=== PATIENT | female | born 1950 | race Caucasian/White ===

== ENCOUNTER 2019-03-06 11:27 | Inpatient (IN) ==
--- NOTE | 2019-02-19 10:14 | PAT Medication Instructions ---
Medication Instructions Date of Service February 19, 2019 Home Medications aspirin [Aspir-81] 81 mg PO DAILY atorvastatin 20 mg PO DAILY azelastine 2 spray INTRANASAL DAILY calcium carbonate-vitamin D3 1 cap PO DAILY clonazepam 0.5 mg PO HS diphenhydramine HCl [Benadryl] 25 mg PO UD PRN duloxetine [Cymbalta] 60 mg PO QAM epinephrine [EpiPen] 0.3 mg IM Q3H PRN famotidine [Pepcid] 20 mg PO UD PRN furosemide 40 mg PO QAM ipratropium-albuterol [Combivent 1 puff INHALATION UD PRN losartan 25 mg PO QAM melatonin 5 mg PO HS PRN mepolizumab [Nucala] 1 dose SUBCUT UD PRN mometasone-formoterol [Dulera] 2 puff INHALATION BID montelukast 10 mg PO QPM tiotropium bromide [Spiriva 2 puff INHALATION DAILY Continue as directed epinephrine [EpiPen] 0.3 mg IM Q3H PRN (if needed) ASK your prescriber and surgeon mepolizumab [Nucala] 1 dose SUBCUT UD PRN DO NOT take the morning of surgery calcium carbonate-vitamin D3 1 cap PO DAILY diphenhydramine HCl [Benadryl] 25 mg PO UD PRN famotidine [Pepcid] 20 mg PO UD PRN furosemide 40 mg PO QAM losartan 25 mg PO QAM montelukast 10 mg PO QPM Take morning of surgery With a small sip of water, OTHERWISE NOTHING TO EAT OR DRINK AFTER MIDNIGHT: aspirin [Aspir-81] 81 mg PO DAILY atorvastatin 20 mg PO DAILY azelastine 2 spray INTRANASAL DAILY duloxetine [Cymbalta] 60 mg PO QAM ipratropium-albuterol [Combivent 1 puff INHALATION UD PRN (if needed) mometasone-formoterol [Dulera] 2 puff INHALATION BID tiotropium bromide [Spiriva 2 puff INHALATION DAILY Take evening before surgery clonazepam 0.5 mg PO HS diphenhydramine HCl [Benadryl] 25 mg PO UD PRN (if needed) famotidine [Pepcid] 20 mg PO UD PRN (if needed) ipratropium-albuterol [Combivent 1 puff INHALATION UD PRN (if needed) melatonin 5 mg PO HS PRN (if needed) mometasone-formoterol [Dulera] 2 puff INHALATION BID montelukast 10 mg PO QPM Other Notes If you have any questions please call us at [phone] or [phone] or [phone] or [phone]
--- NOTE | 2019-02-19 10:22 | Anesthesiology Consultation ---
Date of Service February 19, 2019 Assessment & Plan (1) Encounter for pre-operative examination: Chart Review Chart Review: Acceptable Risk for Surgery and Patient seen in Pre Admission Testing Consults Requested medical & cardiac (HEIKE (02/11/19) & Dr. Sharad Arciniega (02/18/19)) Note received from patients cardiology pre-op appointment on 02/11. Per note, "The patient is stable and at optimal cardiac status presently to proceed with the planned surgery accepting all cardiac risk." Patient was seen by PCPs office on 02/18/19 for preoperative evaluation. Note received stating "Patient medically optimized presently. No SOB, chest pain. Cla ss I risk." "Medically cleared for surgery." Teaching & Discussion Pre-Anesthesia Teaching/Discussion Notes: Instructed NPO after midnight before surgery, except medications with 15 cc of water. Medication instructions provided according to the PAT guidelines. History Surgery Operation Date: 03/06/19 09:10 Proposed Procedures p Left Total Knee Arthroplasty - Elias Harris DO Height/Weight Height: 5 ft 5 in Weight: 132.9 kg Allergies Allergy/AdvReac Type Severity Reaction Status Date / Time grass pollen Allergy Unknown SEVERE Verified 02/12/19 08:46 CONGESTION rosuvastatin [From Crestor] Allergy Unknown RASH WITH Verified 02/12/19 08:07 BLISTERS DUST MITES Allergy Unknown SEVERE Uncoded 02/12/19 08:46 CONGESTION Medications Home Medications Medication Instructions Recorded Confirmed Last Taken azelastine 2 spray INTRANASAL DAILY 02/12/19 02/12/19 Unknown calcium carbonate-vitamin D3 1 cap PO DAILY 02/12/19 02/12/19 Unknown [Calcium 600 + D(3)] clonazepam 0.5 mg PO HS 02/12/19 02/12/19 Unknown diphenhydramine HCl [Benadryl] 25 mg PO UD PRN 02/12/19 02/12/19 Unknown duloxetine [Cymbalta] 60 mg PO QAM 02/12/19 02/12/19 02/12/19 epinephrine [EpiPen] 0.3 mg IM Q3H PRN 02/12/19 02/12/19 Unknown famotidine [Pepcid] 20 mg PO UD PRN 02/12/19 02/12/19 Unknown furosemide 40 mg PO QAM 02/12/19 02/12/19 02/12/19 ipratropium-albuterol [Combivent 1 puff INHALATION UD PRN 02/12/19 02/12/19 Unknown Respimat] losartan 25 mg PO QAM 02/12/19 02/12/19 02/12/19 melatonin 5 mg PO HS PRN 02/12/19 02/12/19 Unknown mepolizumab [Nucala] 1 dose SUBCUT UD PRN 02/12/19 02/12/19 02/07/19 mometasone-formoterol [Dulera] 2 puff INHALATION BID 02/12/19 02/12/19 Unknown montelukast 10 mg PO QPM 02/12/19 02/12/19 Unknown tiotropium bromide [Spiriva 2 puff INHALATION DAILY 02/12/19 02/12/19 Unknown Respimat] Past Medical History Medical History Acid reflux Anxiety and depression Asthma Degenerative disc disease Hearing deficit LEFT EAR History of high blood pressure History of right breast cancer Morbid obesity Osteoarthritis Sleep apnea NO CPAP CURRENTLY DUE TO THE SIZING ISSUE Past Family History Family History Other Family history of heart disease Past Surgical History Surgical History History of arthroscopy of left knee History of bilateral cataract extraction History of breast biopsy RIGHT/MARKER History of colonoscopy History of ear surgery TM RECONSTRUCTION History of hysterectomy History of partial thyroidectomy History of urologic surgery BLADDER TACK Hx of appendectomy Past Anesthesia History No Hx of Anesthesia Complications and No Family Hx of Anesthesia Complications History of PONV No Motion Sickness Screening History of Motion Sickness: No Social History Smoking Status: Former smoker tobacco type: cigarettes Do You Dip or Chew Tobacco: No Smoking End Date: QUIT ~10-15 YRS AGO Hx Alcohol Use: No Alcohol Intake Frequency Comment: 1 BEER A YR Hx Substance Use: No substance use type: does not use Exercise / Class Metabolic Activity II 4-5 Yardwork/Stairs/Walk up hill (Exercise at the center each AM, cholo sework/laundry, Helping care for son who is getting clean from drugs, Can slowly climb FOS but its difficult due to knee pain. Denies CP. Does have HART/SOB from asthma. ) Review of Systems Patient denies chest pain, cough, palpitations. +SOB/HART (Asthma, allergies) +Joint Pain (knees, back, hand) +Acid Reflux (mostly controlled with medications) +wheezing (occasionally due to asthma) Physical Exam Vital Signs BP: 100/68 P: 68 R: 18 T: 98.4 SPO2: 96% on RA Constitutional + morbidly obese ENMT Mouth: + dentures (full set of upper dentures) Thyromental Distance: > or= 3.5 Finger Breadths (3.5) Mallampati Class: I Neck normal visual inspection and + thick neck; neck extension not limited Respiratory normal respiratory effort Auscultation: lungs clear to auscultation bilaterally Cardiovascular Rate/Rhythm: regular rate and regular rhythm Heart Sounds: no murmur Vessels: no carotid bruit Neurologic moves all extremities Psychiatric Orientation: alert and oriented x 3 Testing Electrocardiogram Date: 02/11/19 Findings: + NSR @ (71) Low voltage - possible pulmonary disease Other Testing CT Angiography Chest w/ contrast 07/16/18 IMPRESSION: Old granulomatous disease. No findings to suggest malignancy. The noncalcified 2 cm nodule in the right middle lobe is unchanged from 2009 chest x-ray. Minor bilateral basilar areas of geographic ground glass densities suggesting minor atelectasis or minimal hypersensitivity alveolitis. Laboratory Results 02/19/19 10:43 02/19/19 10:43 Blood Type A Positive 02/19/19 10:43 Antibody Screen NEGATIVE 02/19/19 10:43 PT 10.3 Seconds (9.0-12.0) 02/19/19 10:43 INR 1.0 (0.9-1.1) 02/19/19 10:43 APTT 23.6 Seconds (21.0-31.0) 02/19/19 10:43 Hemoglobin A1c 5.8 % (4.5-5.6) H 02/19/19 10:43 Urine Color Yellow 02/19/19 Unknown Urine Appearance Clear (Clear) 02/19/19 Unknown Urine pH 5.0 (4.5-7.5) 02/19/19 Unknown Ur Specific [place] 1.013 (1.000-1.030) 02/19/19 Unknown Urine Protein Negative (Negative) 02/19/19 Unknown Urine Glucose (UA) Negative (Negative) 02/19/19 Unknown Urine Ketones Negative (Negative) 02/19/19 Unknown Urine Nitrite Negative (Negative) 02/19/19 Unknown Ur Leukocyte Esterase Negative (Negative) 02/19/19 Unknown 02/19/19 Unknown Urine Culture - Final Urine,Clean Catch Three types or organisms present, all moderate counts probable skin ashley. No further identifications or sensitivities to follow.
[2019-02-19 12:07] LABS: Basophils # (auto) 0.01 K/uL (0-0.2); Basophils % (auto) 0.2 %; Eosinophils # (auto) 0.03 K/uL (0-0.5); Eosinophils % (auto) 0.5 %; Hematocrit (blood only) 39.8 % (37-47); Immature Granulocytes # (auto) 0.02 K/uL (0.00-0.02); Immature Granulocytes % (auto) 0.3 %; Lymphocytes # (auto) 1.63 K/uL (1.2-3.4); Lymphocytes % (auto) 28.5 %; Mean Corpuscular Hgb Conc 32.7 g/dL (32-36); Mean Corpuscular Volume 91.1 fL (80-100); Mean Platelet Volume 9.7 fL (7.4-10.4); Monocytes # (auto) 0.55 K/uL (0.11-0.59); Monocytes % (auto) 9.6 %; Neutrophils # (auto) 3.48 K/uL (1.4-6.5); Neutrophils % (auto) 60.9 %; Platelet Count 274 K/uL (130-400); RDW Coefficient of Variation 13.7 % (11.5-14.5); RDW Standard Deviation 46.2 fL (36.4-46.3); Red Blood Count 4.37 M/uL (4.2-5.4); White Blood Count 5.72 K/uL (4.8-10.8)
[2019-02-19 12:10] LABS: Appearance Urine Clear (Clear); Bilirubin Urine Negative (Negative); Blood Urine Negative (Negative); Color Urine Yellow; Glucose Urine UA Negative (Negative); Ketones Urine Negative (Negative); Leukocyte Esterase Urine Negative (Negative); Nitrite Urine Negative (Negative); Protein Urine Negative (Negative); Specific Gravity Urine 1.013 (1.000-1.030); Urobilinogen Urine Negative (Negative)
[2019-02-19 12:17] LABS: Albumin Level 3.6 gm/dl (3.4-5.0); Calcium 9.4 mg/dl (8.5-10.1); Creatinine Clr Calc Pharmacy 87.5 ml/min; Est GFR (Non-African American) 69.9; Potassium 3.8 mmol/L (3.5-5.1)
[2019-02-19 12:26] LABS: Partial Thromboplastin Ratio 0.9; Partial Thromboplastin Time 23.6 Seconds (21.0-31.0); Prothrombin Time 10.3 Seconds (9.0-12.0)
[2019-02-19 12:27] LABS: Estimated Average Glucose 120 mg/dl; Hemoglobin A1C 5.8 % (4.5-5.6)
--- NOTE | 2019-03-04 08:34 | History & Physical Report ---
Date of Service March 04, 2019 Date of Surgery: 03-06-19 Assessment & Plan (1) Osteoarthritis of left knee: Further care discussed with patient and at this point in time has failed conservative measures and would like to proceed with a Left total knee replacement. Plan on discharge will be home with home health physical therapy. DVT prophalaxis with TEDs, SCDs and will also place on aspirin 81 mg p.o. b.i.d. for a month postop. Patient will have follow up appointment in our office two weeks post op for staple/suture removal and re-evaluation. Patient otherwise has no other questions or concerns. patient has failed conservative measures including previous visco, cortisone injections as well as po nsaids. History of Present Illness Chief Complaint: left knee pain Primary Care Provider: Sharad Geiger DO Ms Hogue is a 68 year old female who complains of left knee pain, presents for pre-op evaluation prior to a left total knee replacement scheduled for 03-06-19. she complains of pain, decreased range of motion and instability. She states that the symptoms have been chronic non-traumatic. The symptoms occur constantly with intermittent worsening. Currently the patient states that the symptoms are moderate-severe. The pain is described as aching. She rates her current pain as 9/10. The symptoms are aggravated by ascending stairs, daily activities, descending stairs, first steps while awake, walking and weight bearing. Priti states that the symptoms are relieved by no specific activities. She has been treated with multiple corticosteroid injections as well as viscosupplementation in the past with no relief. Allergies Allergy/AdvReac Type Severity Reaction Status Date / Time grass pollen Allergy Unknown SEVERE Verified 02/12/19 08:46 CONGESTION rosuvastatin [From Crestor] Allergy Unknown RASH WITH Verified 02/12/19 08:07 BLISTERS DUST MITES Allergy Unknown SEVERE Uncoded 02/12/19 08:46 CONGESTION Home Medications Home Medications Medication Instructions Recorded Confirmed Type azelastine 2 spray INTRANASAL DAILY 02/12/19 02/12/19 History calcium carbonate-vitamin D3 1 cap PO DAILY 02/12/19 02/12/19 History [Calcium 600 + D(3)] clonazepam 0.5 mg PO HS 02/12/19 02/12/19 History diphenhydramine HCl [Benadryl] 25 mg PO UD PRN 02/12/19 02/12/19 History duloxetine [Cymbalta] 60 mg PO QAM 02/12/19 02/12/19 History epinephrine [EpiPen] 0.3 mg IM Q3H PRN 02/12/19 02/12/19 History famotidine [Pepcid] 20 mg PO UD PRN 02/12/19 02/12/19 History furosemide 40 mg PO QAM 02/12/19 02/12/19 History ipratropium-albuterol [Combivent 1 puff INHALATION UD PRN 02/12/19 02/12/19 History Respimat] losartan 25 mg PO QAM 02/12/19 02/12/19 History melatonin 5 mg PO HS PRN 02/12/19 02/12/19 History mepolizumab [Nucala] 1 dose SUBCUT UD PRN 02/12/19 02/12/19 History mometasone-formoterol [Dulera] 2 puff INHALATION BID 02/12/19 02/12/19 History montelukast 10 mg PO QPM 02/12/19 02/12/19 History tiotropium bromide [Spiriva 2 puff INHALATION DAILY 02/12/19 02/12/19 History Respimat] Past Med/Surg History Medical History Acid reflux Anxiety and depression Asthma Degenerative disc disease Hearing deficit LEFT EAR History of high blood pressure History of right breast cancer Morbid obesity Osteoarthritis Sleep apnea NO CPAP CURRENTLY DUE TO THE SIZING ISSUE Surgical History History of arthroscopy of left knee History of bilateral cataract extraction History of breast biopsy RIGHT/MARKER History of colonoscopy History of ear surgery TM RECONSTRUCTION History of hysterectomy History of partial thyroidectomy History of urologic surgery BLADDER TACK Hx of appendectomy Family History Other Family history of heart disease Social History Preferred Language: Armenian Communication Ability: Effective Assistant Spa Director Required: No Beliefs That Will Affect Care: None Current Living Situation: Alone Other Information That Helps Us Care for You: No Feels Safe at Home: Yes Smoking Status: Former smoker Tobacco Type: cigarettes Do You Dip or Chew Tobacco: No Smoking End Date: QUIT ~10-15 YRS AGO Hx Alcohol Use: No Hx Substance Use: No Review of Systems 2 Review of Systems: All systems reviewed & are unremarkable except as noted in HPI & below Constitutional: no fever, no chills and no sweats Respiratory: no cough and no dyspnea Cardiovascular: no chest pain, no dyspnea and no orthopnea Gastrointestinal: no abdominal pain, no nausea and no vomiting Musculoskeletal: as per Subjective / HPI Integumentary: no rash and no lesions Physical Exam Physical Exam: Ht: 5ft 5in Wt: 1232.9kg BP: 132/82 Pulse: 82 Constitutional: WD/WN, vitals as above no acute distress Respiratory: normal respiratory effort, lungs clear to auscultation no respiratory distress, no labored breathing and does not use accessory muscles Cardiovascular: RRR, no murmur, no edema Gastrointestinal (Abdomen): normal bowel sounds, soft, nontender, no hepatosplenomegaly Musculoskeletal: Left Knee Physical Exam- She ambulates with a limp, overall varus alignment. There is no erythema or warmth, no ecchymosis, no atrophy. mild suprapatellar effusion, maximum tenderness over her medial joint line. mild crepitation with motion, jose's Negative, posterior drawer negative. positive mcmurrays medially, negative anterior drawer, knee stable with valgus/varus stress. no extensor lag. demonstrates good quad tone. pain with active range of motion, AROM 0/5/110, Passive ROM 0/3/115. No pain with active/passive ROM of ankle. Lower Extremity Strength normal. Lower Extremity Neuro-vascular is normal Results & Data Laboratory Results Left Knee X-ray from 03-19-18 confirm degenerative changes to the left knee, greatest medial compartments and patellofemoral joint overall varus alignment. xrays showing joint space narrowing particularly the medial compartment, osteophyte formation and subchondral sclerosis. no acute bony pathology noted. no loose bodies.
[~2019-03-06 11:27] MED LIST: ACETAMINOPHEN 500 MG TAB PO SCH; BUPIVACAINE 0.5 % 5 MG/1 ML PF 10ML VIAL ONE; CEFAZOLIN 3000MG 65 ML IV SCH; CeleBREX 200 MG CAP PO SCH; FAMOTIDINE 20 MG TAB PO SCH; GABAPENTIN 300 MG PO SCH; LR 500ML BOLUS, THEN 15ML/HR IV SCH; ROPIVACAINE 0.5% 5 MG/ML 30 ML VIAL ONE; ROPIVACAINE 0.5% HCL/PF 150 MG, BUPIVACAINE 0.5% MPF 30 ML, EPINEPHrine 30MG/30ML (OR U... INFIL SCH; TRANEXAMIC ACID 1,000 MG **IV Intra-op IV SCH; TRANEXAMIC ACID 1,000 MG **IV Pre-op IV SCH; dexAMETHasone 4 MG TAB PO SCH
--- NOTE | 2019-03-06 12:36 | History & Physical Bridge Note ---
Date of Service March 06, 2019 History & Physical Bridge Note I have examined the patient, reviewed the History & Physical and in the interval since the performance of the History & Physical I have noted the following changes of clinical significance: no changes noted
[2019-03-06] MEDS ORDERED: fentaNYL citrate 100 MCG/2 ML VIAL ONE (13:10)
[2019-03-06] MEDS ORDERED: MIDAZOLAM HCL 1 MG/ML 2ML VIAL ONE ×2 (13:10→15:13)
[2019-03-06] MEDS ORDERED: POVIDONE-IODINE OP SOLN 30 ML BTL ONE (14:21)
[2019-03-06] MEDS ORDERED: ORTHO JOINT ANESTHETIC ONE (14:21)
[2019-03-06] MEDS ORDERED: BACITRACIN INJ 50,000 UNIT VIAL ONE (14:22)
[2019-03-06] MEDS ORDERED: ATROPINE SULFATE 0.1 MG/ML 10ML SYR IV PRN (14:31)
[2019-03-06] MEDS ORDERED: ePHEDrine sulfate 50 MG/ML AMP IV PRN (14:31)
[2019-03-06] MEDS ORDERED: HYDROmorphone INJ 1 MG/ML SYRINGE IV PRN ×2 (14:31→17:50)
[2019-03-06] MEDS ORDERED: ONDANSETRON INJ 2 MG/ML 2 ML VIAL IV PRN ×2 (14:31→17:50)
[2019-03-06] MEDS ORDERED: PHENYLEPHRINE 100MCG/ML 5ML SYR IV PRN (14:31)
[2019-03-06] MEDS ORDERED: KETOROLAC TROMETHAMINE 15 MG/ML VIAL IV PRN (14:31)
[2019-03-06] MEDS ORDERED: PROPOFOL IV EMULSION 10 MG/ML 20 ML VIAL IV ONE (15:09)
[2019-03-06] MEDS ORDERED: ePHEDrine sulfate 50 MG/ML SYR ONE (15:11)
[2019-03-06] MEDS ORDERED: PHENYLEPHRINE HCL 10 MG/ML VIAL ONE (15:36)
--- NOTE | 2019-03-06 16:03 | Operative Report ---
Post Operative Report Pre & Post Diagnosis Operation Date: 03/06/19 14:30 Pre-Op Diagnosis: Left Knee Osteoarthritis Post-Op Diagnosis: Left Knee Osteoarthritis Procedure Operation Date: 03/06/19 14:30 Actual Procedures p Left Total Knee Arthroplasty(Left utilizing [employer] journey to non- block total knee arthroplasty size 5 femur size 4 tibia size 9 polyethylene size 29 oval patella) - Elias Harris DO Surgeon Elias Harris DO [employer] Manager [employer] [facility] Estimated Blood Loss 5 Findings Consistent with Post-Op Diagnosis Patient presents with severe end-stage tricompartmental degenerative joint disease of left knee no response to conservative management patient with no evidence of subchondral sclerosis marginal osteophytes cystic changes large effusion with a eburnated [id number] changes no response to conservative Specimens Bone and cartilage Drains Medium bore Hemovac Complications none Disposition Accompanied Patient To Recovery: No Disposition: Recovery Room Indications Patient presents with severe end-stage tricompartmental degenerative joint disease no response to conservative therapy and treatment including physical therapy anti-inflammatories relative rest activity modification corticosteroid injections Visco supplementations patient presents with the above intraoperative findings Description of Procedure After proper prepping and draping of the left lower extremity anterior midline incision was made over the region of the extensor extensor mechanism after meticulous hemostasis was obtained and maintained in subcutaneous tissues a medial parapatellar incision was made The patella was subluxed lateralward the medial lateral gutter were cleaned from any hypertrophic synovitis and scar t issue of the distal femoral block was placed and the distal femoral osteotomy cut was made subsequently the chamfers anterior and posterior osteotomy cuts were made utilizing the 4-in-1 block the tibia was subsequently subluxed anteriorward medial and ateral meniscal remnants were excised in their entirety remnants of the anterior and posterior cruciate ligaments were excised in their entirety excellent exposure of the proximal tibia was obtained the tibial osteotomy guide was placed on the proximal tibial osteotomy cut was made once again the knee was irrigated with copious amounts of sterile saline solution the patella was subsequently everted lateralward thickened scar tissue around the patella was removed the patella was subsequently cut utilizing a freehand technique and was drilled prepared for final preparation and placement of patella socially flexion-extension gaps were checked and the equal and symmetric trials were placed to the appropriate femoral and tibial trials with poly-spacer being placed for equal flexion and extension gaps and full range of motion including extension to 0 and flexion to 140 the trial components after having been taken to recovery range of motion was subsequently removed meticulous hemostasis was obtained and maintained subsequently a knee block injection of joint cocktail including ropivacaine 0.5% 150 mg. Bupivacaine 0.5% epinephrine 1-200,030 mL's toradol 30 mg dexamethasone 4 mg ketamine 10 mg clonidine 100 micrograms normal saline solution 30 mg was infiltrated into the soft tissues of the posterior knee medial lateral gutters and periosteal synovium special attention was paid to protect neurovascular structures at all times subsequently trial components having been removed the knee was irrigated with sterile saline solution. debris was removed the proximal tibia was subsequently prepared and was made ready for the placement of the tibial component tibial component was also cemented and tamped into position the femoral component was subsequently placed and cemented in the position the patellar component was subsequently cemented in position because hemostasis once again obtained and maintained wound having been thoroughly irrigated with debridement and debridement lavage was performed as well as a medial parapatellar incision closed with #1 Vicryl in interrupted fashion subcutaneous was closed with #2 Vicryl skin was closed with skin clips. PA-C was necessary for prepping and drapping as well as wound closure of deep fascia Sub cutaneous tissue and skin and was necessary for the case. A sterile compressive dressing was placed patient was taken to recovery in stable condition of report dictated by Steven I attest to the content of the Intraoperative Record and any orders documented therein. Any exceptions are noted below. I attest to the content of the Intraoperative Record and any orders documented therein. Any exceptions are noted below.
--- NOTE | 2019-03-06 17:14 | XRay Report ---
XR knee LT 2V routine HISTORY: 68 years-old Female Surgical Post Op left knee total joint arthroplasty. COMPARISON: Left knee radiographs 11/23/2013 TECHNIQUE: 2 views of the left knee FINDINGS: Left knee total joint arthroplasty and patella resurfacing demonstrates satisfactory alignment withou t acute fracture or retained foreign body. Anterior midline skin nick are noted along with expecte d postsurgical soft tissue swelling and deep tissue air with surgical drainage catheter. IMPRESSION: Left knee total joint arthroplasty and patella resurfacing with satisfactory alignment. The above report was generated using voice recognition software. It may contain grammatical, syntax o r spelling errors. Electronically signed by: Raúl Leonard M.D. 03/06/2019 5:12 PM
--- NOTE | 2019-03-06 17:23 | Anesthesiology Progress Note ---
Date of Service March 06, 2019 Anesthesia Post Procedure Vital Signs Vital Signs: Temp Pulse Pulse Resp BP Pulse Ox 03/06/19 17:20 36.4 C L 67 16 101/52 L 96 03/06/19 17:10 81 16 108/55 L 93 03/06/19 17:00 77 16 102/67 92 03/06/19 16:50 36.3 C L 82 16 87/43 L 96 03/06/19 12:29 36.7 C 86 20 150/84 H 96 Pain Intensity Left Knee: Pain Intensity: 4 Transfer of Care Handoff Completed per policy Notes Mental Status: alert / awake / arousable and participated in evaluation Patient Amnestic to Procedure: Yes Nausea / Vomiting: adequately controlled Pain: adequately controlled Airway Patency, RR, SpO2: stable & adequate BP & HR: stable & adequate Hydration State: stable & adequate Anesthetic Complications: no major complications apparent
[2019-03-06] MEDS ORDERED: BISACODYL 10 MG SUPP PR PRN (17:50)
[2019-03-06] MEDS ORDERED: ALUMINUM/MAGNESIUM SUSP 30 ML UDC PO PRN (17:50)
[2019-03-06] MEDS ORDERED: METOCLOPRAMIDE HCL INJ 5 MG/ML 2 ML VIAL IV PRN (17:50)
[2019-03-06] MEDS ORDERED: MAGNESIUM HYDROXIDE SUSP 30 ML UDC PO PRN (17:50)
[2019-03-06] MEDS ORDERED: NALOXONE HCL 0.4 MG/1 ML VIAL/CARP IV PRN (17:50)
[2019-03-06] MEDS ORDERED: IPRATROPIUM BROMIDE/ALBUTEROL respimat INH INH PRN (17:50)
[2019-03-06] MEDS ORDERED: EPINEPHRINE ADULT AUTO-INJECT 0.3 MG SYR IM PRN (17:50)
[2019-03-06] MEDS ORDERED: SODIUM CHLORIDE 0.9% 1000ML 1,000 ML IV SCH (19:30)
[2019-03-06] MEDS: ACETAMINOPHEN 500 MG TAB PO SCH (21:09)
[2019-03-06] MEDS: MONTELUKAST SODIUM 10 MG TABLET PO SCH (21:10)
[2019-03-06] MEDS: DOCUSATE SODIUM 100 MG CAP PO SCH (21:10)
[2019-03-06] MEDS: KETOROLAC TROMETHAMINE 15 MG/ML VIAL IV SCH (21:11)
[2019-03-06] MEDS: SENNA 8.6 MG TAB PO SCH (21:12)
[2019-03-06] MEDS: ASPIRIN 81 MG ECTAB PO SCH (21:12)
[2019-03-06] MEDS: CEFAZOLIN 2000MG 2,000 MG/15 ML SYR IV SCH (21:13)
[2019-03-06] MEDS: clonazePAM 0.5 MG TAB PO SCH (21:19)
[2019-03-07] MEDS: OXYCODONE HCL IR 5 MG TAB (IMMEDIATE RELEASE) PO PRN ×4 (00:22→21:20)
[2019-03-07] MEDS: KETOROLAC TROMETHAMINE 15 MG/ML VIAL IV SCH ×3 (01:50→13:07)
[2019-03-07] MEDS: ACETAMINOPHEN 500 MG TAB PO SCH ×3 (04:56→21:21)
[2019-03-07] MEDS: CEFAZOLIN 2000MG 2,000 MG/15 ML SYR IV SCH (04:56)
--- NOTE | 2019-03-07 07:23 | Orthopedic Progress Note ---
Date of Service March 07, 2019 Assessment & Plan (1) Status post total left knee replacement: POD #1 s/p Left TKA pt/ot dvt proph with TONYA/SCD/ASA D/C plans uncertain at this time, likely would recommend rehab but will see how she performs in PT. labs pending Subjective POD #1 s/p Left TKA denies CP/SOB denies F/chills pain well controlled, currently 12/16 Review of Systems Constitutional: no fever, no chills and no sweats Physical Exam Physical Exam: Vital Signs Temp Pulse Pulse Pulse Resp BP Pulse Ox 03/07/19 02:54 36.8 C 90 16 97/53 L 97 03/06/19 23:23 36.6 C 85 16 92/55 L 96 03/06/19 20:52 37.0 C 97 H 17 108/67 95 03/06/19 19:45 90 18 106/63 96 03/06/19 18:41 93 H 17 102/69 93 03/06/19 18:15 90 18 128/74 94 03/06/19 17:45 37.2 C 84 16 97/58 L 95 03/06/19 17:20 36.4 C L 67 16 101/52 L 96 03/06/19 17:10 81 16 108/55 L 93 03/06/19 17:00 77 16 102/67 92 03/06/19 16:50 36.3 C L 82 16 87/43 L 96 03/06/19 12:29 36.7 C 86 20 150/84 H 96 Intake and Output 03/06/19 03/07/19 03/07/19 22:59 06:59 14:59 Intake Total 1850 / 4370.000 1118.333 / 4370.00 0 Output Total 505 / 1015 510 / 1015 Balance 1345 / 3355.000 608.333 / 3355.000 Intake: IV 175 / 2445.000 868.333 / 2445.000 Ancef 3000MG 6 5 ml @ 130 mls/hr 65 / 65 IV PREOP SYED R x#:[id number] Nss 1000ML 1,0 00 ml @ 100 mls/ 868.333 / 868.333 hr IV .Q10H SC H Rx#:[id number] Cyklokapron 1, 000 mg In Sodium 110 / 110 Chloride 100 m l @ 660 mls/hr IV 0630 SYED Rx#:[id number] IV Perioperative 1400 / 1400 Oral 275 / 525 250 / 525 Output: Urine 400 / 900 500 / 900 Estimated Blood Loss 5 / 5 Drain Output 100 / 110 10 / 110 Left Knee Hemo vac 100 / 110 10 / 110 Other: Weight 132.2 kg Constitutional: WD/WN, vitals as above no acute distress Musculoskeletal: left knee: NVDI, calf SNT, negative betsy sign. DP palpable, able to wiggle toes/ankle movement without difficulty. dressing clean dry and intact. Vital Signs Temp 36.8 C 03/07/19 02:54 Pulse 90 03/07/19 02:54 Resp 16 03/07/19 02:54 BP 97/53 L 03/07/19 02:54 Pulse Ox 97 03/07/19 02:54 Intake & Output 03/06/19 03/07/19 03/07/19 18:59 06:59 18:59 Intake Total 2976.667 / 4370.00 0 1393.333 / 4370.00 0 Output Total 5 / 1015 1010 / 1015 Balance 2971.667 / 3355.00 0 383.333 / 3355.000 Weight 132.2 kg Intake: IV 1576.667 / 2445.00 0 868.333 / 2445.000 Ancef 3000MG 6 5 ml @ 130 mls/hr 65 / 65 IV PREOP SYED R x#:[id number] Lr 1,000 ml @ 15 mls/hr IV . 1291.667 / 1291.66 7 Q24H SYED Rx#:0 [id number] Nss 1000ML 1,0 00 ml @ 100 mls/ 868.333 / 868.333 hr IV .Q10H SC H Rx#:[id number] Cyklokapron 1, 000 mg In Sodium 220 / 220 Chloride 100 m l @ 660 mls/hr IV 0630 SYED Rx#:0 [id number] IV Perioperative 1400 / 1400 Oral 525 / 525 Output: Urine 900 / 900 Estimated Blood Loss 5 / 5 Drain Output 110 / 110 Left Knee Hemo vac 110 / 110 Results & Data Vital Signs (Past 12 Hours) Vital Signs Temp Pulse Pulse Resp BP Pulse Ox 03/07/19 02:54 36.8 C 90 16 97/53 L 97 03/06/19 23:23 36.6 C 85 16 92/55 L 96 03/06/19 20:52 37.0 C 97 H 17 108/67 95 03/06/19 19:45 90 18 106/63 96 Diagnostic Findings XR knee LT 2V routine HISTORY: 68 years-old Female Surgical Post Op left knee total joint arthroplasty. COMPARISON: Left knee radiographs 11/23/2013 TECHNIQUE: 2 views of the left knee FINDINGS: Left knee total joint arthroplasty and patella resurfacing demonstrates satisfactory alignment without acute fracture or retained foreign body. Anterior midline skin nick are noted along with expected postsurgical soft tissue swelling and deep tissue air with surgical drainage catheter. IMPRESSION: Left knee total joint arthroplasty and patella resurfacing with satisfactory alignment.
[2019-03-07] MEDS: DOCUSATE SODIUM 100 MG CAP PO SCH ×2 (07:50→21:21)
[2019-03-07] MEDS: DULOXETINE HCL 60 MG CAP PO SCH (07:51)
[2019-03-07] MEDS: MULTIVITAMIN TAB PO SCH (07:51)
[2019-03-07] MEDS: CALCIUM 600MG + VIT D 400 IU TAB PO SCH (07:53)
[2019-03-07] MEDS: ASPIRIN 81 MG ECTAB PO SCH ×2 (07:53→21:21)
[2019-03-07] MEDS: LOSARTAN POTASSIUM 25 MG TAB PO SCH (07:54)
[2019-03-07 08:14] LABS: Hematocrit (blood only) 33.7 % (37-47); Mean Corpuscular Hgb Conc 32.6 g/dL (32-36); Mean Corpuscular Volume 89.6 fL (80-100); Mean Platelet Volume 9.6 fL (7.4-10.4); Platelet Count 257 K/uL (130-400); RDW Coefficient of Variation 13.7 % (11.5-14.5); RDW Standard Deviation 45.3 fL (36.4-46.3); Red Blood Count 3.76 M/uL (4.2-5.4); White Blood Count 15.26 K/uL (4.8-10.8)
[2019-03-07 08:51] LABS: BUN Creatinine Ratio 20.9 (10-20); Calcium 8.5 mg/dl (8.5-10.1); Creatinine Clr Calc Pharmacy 68.8 ml/min; Est GFR (African American) 60.8; Est GFR (Non-African American) 52.5; Potassium 4.4 mmol/L (3.5-5.1)
[2019-03-07] MEDS ORDERED: TIOTROPIUM BROMIDE 5 PUFF/90 MCG INH INH SCH (09:00)
[2019-03-07] MEDS: TIOTROPIUM BROMIDE 5 PUFF/90 MCG INH INH SCH (11:33)
[2019-03-07] MEDS: MONTELUKAST SODIUM 10 MG TABLET PO SCH (21:21)
[2019-03-07] MEDS: clonazePAM 0.5 MG TAB PO SCH (21:21)
[2019-03-07] MEDS: SENNA 8.6 MG TAB PO SCH (21:21)
[2019-03-07] MEDS: CeleBREX 200 MG CAP PO SCH (21:21)
[2019-03-08] MEDS ORDERED: ALBUT/IPRATROP 3MG/0.5MG NEB 3 ML VIAL NEB STA (04:34)
[2019-03-08] MEDS: ACETAMINOPHEN 500 MG TAB PO SCH ×2 (05:25→13:37)
[2019-03-08] MEDS: ALBUT/IPRATROP 3MG/0.5MG NEB 3 ML VIAL NEB SCH ×3 (07:01→15:09)
--- NOTE | 2019-03-08 07:10 | Orthopedic Progress Note ---
Date of Service March 08, 2019 Assessment & Plan (1) Status post total left knee replacement: POD #2 s/p Left TKA pt/ot dvt proph with TONYA/SCD/ASA awaiting auth to [facility] breathing has improved with breathing tx. Subjective POD #2 s/p Left TKA admits to some SOB last evening which was relieved by oxygen and breathing treatment. states she feels fine now denies F/chills pain well controlled, currently 12/16 Physical Exam Physical Exam: Vital Signs Temp 36.7 C 03/08/19 06:38 Pulse 78 03/08/19 07:06 Resp 18 03/08/19 07:06 BP 115/72 03/08/19 06:38 Pulse Ox 99 03/08/19 07:06 Intake & Output 03/07/19 03/08/19 03/08/19 18:59 06:59 18:59 Intake Total 640 / 1090 450 / 1090 Output Total 100 / 225 125 / 225 Balance 540 / 865 325 / 865 Intake: Oral 640 / 1090 450 / 1090 Output: Drain Output 100 / 225 125 / 225 Left Knee Hemo vac 100 / 225 125 / 225 Other: # Unmeasured Voi ds 1 Constitutional: WD/WN, vitals as above no acute distress Musculoskeletal: left knee: NVDI, calf SNT, negative betsy sign. DP palpable, able to wiggle toes/ankle movement without difficulty. Prevena clean dry and intact. expected post-operative bruising noted. hemovac has been removed. Results & Data Vital Signs (Past 12 Hours) Vital Signs Temp Pulse Pulse Resp BP BP Pulse Ox 03/08/19 07:06 78 18 99 03/08/19 06:38 36.7 C 97 H 18 115/72 99 03/08/19 04:52 84 16 97 03/08/19 02:35 36.4 C L 85 18 135/89 98 03/07/19 23:20 36.8 C 85 18 111/69 98 Laboratory Results Laboratory Results WBC 15.26 K/uL (4.8-10.8) H 03/07/19 07:38 RBC 3.76 M/uL (4.2-5.4) L 03/07/19 07:38 Hgb 11.0 g/dL (12.0-16.0) L 03/07/19 07:38 Hct 33.7 % (37-47) L 03/07/19 07:38 MCV 89.6 fL (80-100) 03/07/19 07:38 MCH 29.3 pg (25-34) 03/07/19 07:38 MCHC 32.6 g/dL (32-36) 03/07/19 07:38 RDW Std Deviation 45.3 fL (36.4-46.3) 03/07/19 07:38 RDW Coeff of Jeanne 13.7 % (11.5-14.5) 03/07/19 07:38 Plt Count 257 K/uL (130-400) 03/07/19 07:38 MPV 9.6 fL (7.4-10.4) 03/07/19 07:38 Immature Gran % (Auto) 0.3 % 02/19/19 10:43 Neut % (Auto) 60.9 % 02/19/19 10:43 Lymph % (Auto) 28.5 % 02/19/19 10:43 [place] % (Auto) 9.6 % 02/19/19 10:43 Eos % (Auto) 0.5 % 02/19/19 10:43 Baso % (Auto) 0.2 % 02/19/19 10:43 Immature Gran # (Auto) 0.02 K/uL (0.00-0.02) 02/19/19 10:43 Neut # (Auto) 3.48 K/uL (1.4-6.5) 02/19/19 10:43 Lymph # (Auto) 1.63 K/uL (1.2-3.4) 02/19/19 10:43 [place] # (Auto) 0.55 K/uL (0.11-0.59) 02/19/19 10:43 Eos # (Auto) 0.03 K/uL (0-0.5) 02/19/19 10:43 Baso # (Auto) 0.01 K/uL (0-0.2) 02/19/19 10:43 PT 10.3 Seconds (9.0-12.0) 02/19/19 10:43 INR 1.0 (0.9-1.1) 02/19/19 10:43 APTT 23.6 Seconds (21.0-31.0) 02/19/19 10:43 PTT Ratio 0.9 02/19/19 10:43 Sodium 138 mmol/L (136-145) 03/07/19 07:38 Potassium 4.4 mmol/L (3.5-5.1) 03/07/19 07:38 Chloride 108 mmol/L (98-107) H 03/07/19 07:38 Carbon Dioxide 23 mmol/L (21-32) 03/07/19 07:38 Anion Gap 7.0 (3-11) 03/07/19 07:38 BUN 23 mg/dl (7-18) H 03/07/19 07:38 Creatinine 1.09 mg/dl (0.6-1.2) 03/07/19 07:38 Est Cr Clr Drug Dosing 68.8 ml/min 03/07/19 07:38 Est GFR ( Amer) 60.8 03/07/19 07:38 Est GFR (Non-Af Amer) 52.5 03/07/19 07:38 BUN/Creatinine Ratio 20.9 (10-20) H 03/07/19 07:38 Glucose 114 mg/dl (70-99) H 03/07/19 07:38 Estimat Average Glucose 120 mg/dl 02/19/19 10:43 Hemoglobin A1c 5.8 % (4.5-5.6) H 02/19/19 10:43 Calcium 8.5 mg/dl (8.5-10.1) 03/07/19 07:38 Albumin 3.6 gm/dl (3.4-5.0) 02/19/19 10:43 Urine Color Yellow 02/19/19 Unknown Urine Appearance Clear (Clear) 02/19/19 Unknown Urine pH 5.0 (4.5-7.5) 02/19/19 Unknown Ur Specific [place] 1.013 (1.000-1.030) 02/19/19 Unknown Urine Protein Negative (Negative) 02/19/19 Unknown Urine Glucose (UA) Negative (Negative) 02/19/19 Unknown Urine Ketones Negative (Negative) 02/19/19 Unknown Urine Blood Negative (Negative) 02/19/19 Unknown Urine Nitrite Negative (Negative) 02/19/19 Unknown Urine Bilirubin Negative (Negative) 02/19/19 Unknown Urine Urobilinogen Negative (Negative) 02/19/19 Unknown Ur Leukocyte Esterase Negative (Negative) 02/19/19 Unknown Blood Type A Positive 02/19/19 10:43 Antibody Screen NEGATIVE 02/19/19 10:43
[2019-03-08] MEDS: OXYCODONE HCL IR 5 MG TAB (IMMEDIATE RELEASE) PO PRN ×2 (07:47→15:30)
[2019-03-08] MEDS: DOCUSATE SODIUM 100 MG CAP PO SCH (07:53)
[2019-03-08] MEDS: DULOXETINE HCL 60 MG CAP PO SCH (07:54)
[2019-03-08] MEDS: CALCIUM 600MG + VIT D 400 IU TAB PO SCH (07:54)
[2019-03-08] MEDS: MULTIVITAMIN TAB PO SCH (07:54)
[2019-03-08] MEDS: ASPIRIN 81 MG ECTAB PO SCH (07:55)
[2019-03-08] MEDS: CeleBREX 200 MG CAP PO SCH (07:55)
[2019-03-08] MEDS: LOSARTAN POTASSIUM 25 MG TAB PO SCH (07:56)
[2019-03-08] MEDS: TIOTROPIUM BROMIDE 5 PUFF/90 MCG INH INH SCH (13:35)
--- NOTE | 2019-03-08 19:39 | Hospitalist Progress Note ---
Date of Service March 08, 2019 Assessment & Plan (1) Chest tightness: Given that this started and improved with albuterol, this appears almost certainly to have been a mild asthma flare. Were this heart related, certainly her albuterol would have made it worse, and by the time a troponin was checked given that it was hours after an episode that lasted quite a while, it likely would have been elevated. This resolved. And again was almost certainly related to her Asthma. (2) Asthma: See above. Stable for home. (3) Neck tightness: Worked up extensively. However fortunately symptoms did not progress did not include any chest symptoms did not include any shortness of breath, and really did seem to be what the patient felt it was which was more of something just feeling like it was stuck in her throat. She had a benign exam and benign vitals, her EKG was nonspecific but seems to not be drastically changed from her preop EKG and her troponin was negative. Her heart score showed a moderate risk, but really only on the basis of her pre-existing coronary disease. Given that her pre-existing coronary disease is moderate stenosis at worst, this would almost have to be a STEMI or nothing for it to be related to her coronary disease, and given that she was not showing any signs or symptoms of STEMI, this obviously would not be the case. Further clinically it did appear to really just be more of an upper airway or upper esophageal irritation. (4) Coronary artery disease: See above acutely. She appeared stable for discharge to home and felt good and safe going home, and her daughter agreed with plan of care as well. In regards to her chronic management, we discussed her really probably having good benefit from a moderate to high intensity statin, but that she had had an allergic reaction to generic. We discussed that this is normally extremely unlikely, but given her rather severe allergy profile it was plausible that she might be allergic to 1 of the fillers given that the active ingredient would be the same either way. We discussed reinitiating brand only Crestor and then having her follow-up with her warehouse coordinator. I discussed the importance of having somebody continue to manage the medicine, follow for side effects, and follow-up labs. She notes that she sees her warehouse coordinator in just a few weeks, and would have him "take ownership" of the situation. Given all of this, risks/benefits favor getting her back on a statin or at least trying, with the hopes that a brand only would be covered given the situation. Stable for home. Subjective Patient seen multiple times throughout the day. We were asked to see due to shortness of breath in the middle the night. She notes that she woke up feeling tight in her neck and then tight in her chest. It lasted for quite a while, nursing assessed her and noted that her lungs wheezy. She was given an albuterol nebulizer and she almost immediate started feeling better. Nursing told her that her lungs sounded more clear again too. After that she felt totally better. We discussed her back ground medical history, and she notes she has very brittle asthma requiring very escalated therapy, but with her current regimen she is actually been doing reasonably well. She also notes she does have coronary disease, but she notes that its worst a 40% stenosis. She does not seem to get angina. She follows closely with her regular warehouse coordinator. She also has been on statins in the past, tolerating brand name Crestor, but noting that she gets a rash once she was on generic. After initial interview and exam, she then has me called back because she is starting to feel a sensation in her neck. She describes it is a little bit of a feeling of tightness, but she has absolutely no shortness of breath whenever is going on. It lasts for quite a while with 0 progression, and after a while she believes she just had a feeling of something in her throat. No chest tightness, no shortness of breath. [place] different than what woke her in the middle of the night. Review of Systems Review of Systems: All systems reviewed & are unremarkable except as noted in HPI & below Physical Exam Physical Exam: Both exams found her to be awake alert oriented x3 pleasant no acute distress. HEENT normal cephalic atraumatic mucous membranes moist. Breathing unlabored no accessory muscle use good effort no rales rhonchi or wheezes. Her pulse ox was 98% on room air when she was feeling tight in her neck. She had no upper airway stridor. Her left knee had a wound VAC in place with no surrounding erythema. Cardio is somewhat distant. EKG was sinus without any ST elevations. She had flipped T in II and to a lesser degree in aVF. This was compared to her preop EKG which is very grainy scanned document and very difficult to read, it appeared on her preop EKG she had mildly flipped T in lead II and probably at least flattened T waves in aVF. A troponin was checked, and was negative. Results & Data Vital Signs (Past 12 Hours) Vital Signs Temp Pulse Pulse Resp BP Pulse Ox 03/08/19 11:34 81 18 95 03/08/19 11:29 99 03/08/19 07:55 36.5 C 82 17 126/64 95
== END 2019-03-08 16:15 | disposition home health service (06) | DRG 470 ==
LOC: ASU 11:27 → 3E 15:46

== ENCOUNTER 2019-07-10 05:50 | Inpatient (IN) ==
--- NOTE | 2019-06-10 08:10 | History & Physical Report ---
Date of Service June 10, 2019 date of Surgery: 07/10/19 Assessment & Plan (1) Tricompartment osteoarthritis of right knee: Priti has failed conservative measures and would like to proceed with right TKA @ [facility]. she has recovered well after her left TKA. risks and benefits discussed in detail. Plan on discharge will be home with home health physical therapy. DVT prophalaxis with TEDs, SCDs and will also place on aspirin 81 mg p.o. b.i.d. for a month postop. Patient will have follow up appointment in our office two weeks post op for staple/suture removal and re-evaluation. Patient otherwise has no other questions or concerns. History of Present Illness Chief Complaint: right knee pain Primary Care Provider: Sharad Geiger DO Ms Hogue is a 69 year old female who complains of right knee pain and presents for pre op prior to a right total knee replacement. She presents with pain, crepitus, weakness and instability on the right side. She states that the symptoms have been chronic non-traumatic. The symptoms occur constantly with intermittent worsening. Currently the patient states that the symptoms are moderate-severe. The pain is described as aching, burning and sharp. She rates her current pain as 7/10. The symptoms are aggravated by repetitive activities and walking. Priti states that the symptoms are relieved by no specific activity. In addition to right knee pain the patient is also experiencing decreased mobility, pain after activity, pain while sitting, stiffness and weakness. Patient is ambulating with a cane. Patient is taking Ibuprofen and Tylenol for pain. Patient has had series of visco in both knees. Patient had left TKA done on 03/06/19 Allergies Allergy/AdvReac Type Severity Reaction Status Date / Time Iawgdbt-[id number]-Lka Reductase Allergy Intermediate Rash Verified 03/06/19 12:20 Inhibitor grass pollen Allergy Unknown SEVERE Verified 03/06/19 12:20 CONGESTION rosuvastatin [From Crestor] Allergy Unknown RASH WITH Verified 03/06/19 12:20 BLISTERS DUST MITES Allergy Unknown SEVERE Uncoded 03/06/19 12:20 CONGESTION Home Medications Home Medications Medication Instructions Recorded Confirmed Type Calcium 600 + D(3) 1 cap PO DAILY 02/12/19 03/06/19 History Combivent Respimat 1 puff INHALATION UD PRN 02/12/19 03/06/19 History Dulera 2 puff INHALATION BID 02/12/19 03/06/19 History Nucala 1 dose SUBCUT UD PRN 02/12/19 03/06/19 History Spiriva Respimat 2 puff INHALATION DAILY 02/12/19 03/06/19 History azelastine 2 spray INTRANASAL DAILY 02/12/19 03/06/19 History clonazepam 0.5 mg PO HS 02/12/19 03/06/19 History diphenhydramine HCl [Benadryl] 25 mg PO UD PRN 02/12/19 03/06/19 History duloxetine [Cymbalta] 60 mg PO QAM 02/12/19 03/06/19 History epinephrine [EpiPen] 0.3 mg IM Q3H PRN 02/12/19 03/06/19 History famotidine [Pepcid] 20 mg PO UD PRN 02/12/19 03/06/19 History furosemide 40 mg PO QAM 02/12/19 03/06/19 History losartan 25 mg PO QAM 02/12/19 03/06/19 History montelukast 10 mg PO QPM 02/12/19 03/06/19 History oxycodone 5 - 10 mg PO Q4H PRN #30 tab 03/08/19 Rx rosuvastatin [Crestor] 20 mg PO DAILY #30 tab 03/08/19 Rx Past Med/Surg History Social History Preferred Language: Pashto Communication Ability: Effective Post Anesthesia Care Unit Nurse Required: No Beliefs That Will Affect Care: None Current Living Situation: Alone Feels Safe at Home: Yes Smoking Status: Former smoker Tobacco Type: cigarettes ; Hx Alcohol Use: No Hx Substance Use: No Review of Systems Review of Systems: All systems reviewed & are unremarkable except as noted in HPI & below Constitutional: no fever, no chills and no sweats Respiratory: no cough and no dyspnea Cardiovascular: no chest pain, no dyspnea and no orthopnea Gastrointestinal: no abdominal pain, no nausea and no vomiting Musculoskeletal: as per Subjective / HPI Physical Exam Physical Exam: Ht: 65 in Wt: 295 lb BP: 126/82 Pulse: 80 Constitutional: WD/WN, vitals as above no acute distress Respiratory: normal respiratory effort, lungs clear to auscultation no respiratory distress, no labored breathing and does not use accessory muscles Cardiovascular: RRR, no murmur, no edema Gastrointestinal (Abdomen): normal bowel sounds, soft, nontender, no hepatosplenomegaly Musculoskeletal: right leg- she ambulates with a limp, overall varus alignment, no ecchymosis, mild effusion, diffuse tenderness to the knee greatest over medial compartment, negative patellar apprehension , mild crepitation with motion, Patella position neutral, jose's negative, Zakia's - lateral positive, Zakia's - medial positive, Posterior drawer- negative, anterior drawer negative, valgus stress negative, varus stress negative, no extensor lag, pain with active range of motion, less pain with passive painful ROM, Range of motion 0/3/110. No pain with active/passive ROM of ankle. Lower extremity strength normal. Lower extremity neuro-vascular is normal Results & Data Diagnostic Findings right knee xray from 05/10/19 showing advanced degenerative changes to the right knee, with narrowing of the medial compartment and patello-femoral joint with patellar spurring noted, findings showing joint space narrowing of the medial compartment and patello-femoral joint, osteophyte formation and subchondral sclerosis noted. overall varus alignment. no acute bony pathology noted.
--- NOTE | 2019-06-24 15:41 | PAT Medication Instructions ---
Medication Instructions Date of Service June 24, 2019 Home Medications Calcium 600 + D(3) 1 cap PO QAM Dulera 2 puff INHALATION QAM Nucala 1 dose SUBCUT MONTHLY PRN Spiriva Respimat 2 puff INHALATION QDL azelastine 2 spray INTRANASAL QAM clonazepam 0.5 mg PO HS diphenhydramine HCl [Benadryl] 25 mg PO UD PRN duloxetine [Cymbalta] 60 mg PO QAM epinephrine [EpiPen] 0.3 mg IM Q3H PRN famotidine [Pepcid] 20 mg PO UD PRN furosemide 40 mg PO QAM montelukast 10 mg PO QPM albuterol sulfate 2.5 mg INHALATION QID PRN albuterol sulfate [Ventolin HFA] 1 puff INHALATION Q6H PRN aspirin [Aspirin Low Dose] 81 mg PO QAM losartan 25 mg PO QAM melatonin 5 - 10 mg PO HS Continue as directed epinephrine [EpiPen] 0.3 mg IM Q3H PRN DO NOT take the morning of surgery Calcium 600 + D(3) 1 cap PO QAM diphenhydramine HCl [Benadryl] 25 mg PO UD PRN famotidine [Pepcid] 20 mg PO UD PRN furosemide 40 mg PO QAM losartan 25 mg PO QAM Take morning of surgery With a small sip of water, OTHERWISE NOTHING TO EAT OR DRINK AFTER MIDNIGHT: Dulera 2 puff INHALATION QAM Spiriva Respimat 2 puff INHALATION QDL azelastine 2 spray INTRANASAL QAM duloxetine [Cymbalta] 60 mg PO QAM albuterol sulfate 2.5 mg INHALATION QID PRN (use if needed; please bring with you to hospital day of surgery if possible) albuterol sulfate [Ventolin HFA] 1 puff INHALATION Q6H PRN (if needed) Take evening before surgery clonazepam 0.5 mg PO HS famotidine [Pepcid] 20 mg PO UD PRN (if needed) montelukast 10 mg PO QPM albuterol sulfate 2.5 mg INHALATION QID PRN (if needed) albuterol sulfate [Ventolin HFA] 1 puff INHALATION Q6H PRN (if needed) melatonin 5 - 10 mg PO HS Other Notes If you have any questions please call us at [phone] or [phone] or [phone] or [phone]
--- NOTE | 2019-06-25 12:04 | Anesthesiology Consultation ---
Date of Service June 25, 2019 Assessment & Plan (1) Encounter for pre-operative examination: - Cardio: 06/12/19: "The patient is stable and at optimal cardiac status presently to proceed with the planned surgery accepting all cardiac risk." - PCP: 06/24/19: "No acute issues today. Cleared for surgery." Chart Review Chart Review: Acceptable Risk for Surgery and Patient seen in Pre Admission Testing Teaching & Discussion Pre-Anesthesia Teaching/Discussion Notes: Instructed NPO after midnight before surgery,except medications with 15 cc of water. Medication instructions provided according to the PAT guidelines. History Surgery Operation Date: 07/10/19 07:00 Proposed Procedures p Right Total Knee Arthroplasty - Elias Harris DO Height/Weight Height: 5 ft 6 in Weight: 129.5 kg Allergies Allergy/AdvReac Type Severity Reaction Status Date / Time Afwneji-Rcl-Jee Reductase Allergy Intermediate Rash Verified 03/06/19 12:20 Inhibitor dog dander Allergy Unknown sneezing, Verified 06/25/19 14:31 watery eyes grass pollen Allergy Unknown severe Verified 06/25/19 14:31 congestion rosuvastatin [From Crestor] Allergy Unknown rash, Verified 06/25/19 14:31 blisters DUST MITES Allergy Unknown severe Uncoded 06/25/19 14:31 congestion Medications Home Medications Medication Instructions Recorded Confirmed Last Taken Calcium 600 + D(3) 1 cap PO QAM 02/12/19 06/19/19 03/05/19 08:00 Dulera 2 puff INHALATION QAM 02/12/19 06/19/19 03/05/19 08:00 Nucala 1 dose SUBCUT MONTHLY PRN 02/12/19 06/19/19 02/04/19 Spiriva Respimat 2 puff INHALATION QDL 02/12/19 06/19/19 03/06/19 08:00 azelastine 2 spray INTRANASAL QAM 02/12/19 06/19/19 03/06/19 09:00 clonazepam 0.5 mg PO HS 02/12/19 06/19/19 03/05/19 20:00 diphenhydramine HCl [Benadryl] 25 mg PO UD PRN 02/12/19 06/19/19 Unknown duloxetine [Cymbalta] 60 mg PO QAM 02/12/19 06/19/19 03/06/19 09:00 epinephrine [EpiPen] 0.3 mg IM Q3H PRN 02/12/19 06/19/19 Unknown famotidine [Pepcid] 20 mg PO UD PRN 02/12/19 06/19/19 03/03/19 furosemide 40 mg PO QAM 02/12/19 06/19/19 03/05/19 08:00 montelukast 10 mg PO QPM 02/12/19 06/19/19 03/05/19 20:00 albuterol sulfate 2.5 mg INHALATION QID PRN 06/19/19 06/19/19 Unknown albuterol sulfate [Ventolin HFA] 1 puff INHALATION Q6H PRN 06/19/19 06/19/19 Un known aspirin [Aspirin Low Dose] 81 mg PO QAM 06/19/19 06/19/19 Unknown losartan 25 mg PO QAM 06/19/19 06/19/19 Unknown melatonin 5 - 10 mg PO HS 06/19/19 06/19/19 Unknown Past Medical History Medical History Acid reflux controlled Anxiety Asthma stable Chronic obstructive pulmonary disease stable Degenerative disc disease Depression GERD (gastroesophageal reflux disease) controlled Hearing deficit left History of right breast cancer no chemo/XRT Hyperlipidemia Hypertension Morbid obesity Osteoarthritis Sleep apnea non-compliant with CPAP Exercise / Class Metabolic Activity III < 4 Walking/Shop/Light housework (rare cane PRN) Past Family History Family History Other Family history of heart disease Past Surgical History Surgical History History of arthroscopy of left knee History of bilateral cataract extraction History of breast biopsy RIGHT/MARKER History of colonoscopy History of ear surgery LEFT EAR - HAD PLASTIC EAR DRUM PLACED CHILD AND NOW HARD OF HEARING IN THAT EAR History of hysterectomy History of left knee replacement 03/06/19: SAB x2 at L3-L4 + PNB at [facility] History of partial thyroidectomy History of urologic surgery BLADDER TACK Hx of appendectomy Hx of cardiac cath REMOTE HX= NO STENTS Hx of myringotomy Past Anesthesia History No Hx of Anesthesia Complications and No Family Hx of Anesthesia Complications History of PONV No Hx of PONV and No Hx of Motion Sickness Social History Smoking Status: Former smoker tobacco type: cigarettes Do You Dip or Chew Tobacco: No Smoking End Date: QUIT 10+ YEARS AGO Hx Alcohol Use: No alcohol intake frequency: other Hx Substance Use: No substance use type: does not use Review of Systems Reflux controlled. Patient denies chest pain, shortness of breath, cough, wheezing, palpitations. Physical Exam Vital Signs VITALS BP 111/55 P 77 TEMP 98.4 SP02 97%RA RESP 16 PHYSICAL Full neck and c-spine range of motion. Full TMJ range of motion. TMD 3.5 finger breaths Mallampati Score 1 Dentition: full dentures on upper Lungs: clear throughout to auscultation Cardiac: regular rate and rhythm, no murmurs noted Spine: normal Carotid arteries: negative bruit Extremities: no edema Testing Laboratory Results 06/25/19 12:23 06/25/19 12:33 PT 10.3 Seconds (9.0-12.0) 06/25/19 12:23 INR 1.0 (0.9-1.1) 06/25/19 12:23 APTT 24.2 Seconds (21.0-31.0) 06/25/19 12:23 Hemoglobin A1c 5.7 % (4.5-5.6) H 06/25/19 12:23 Urine Color Yellow 06/25/19 12:23 Urine Appearance Clear (Clear) 06/25/19 12:23 Urine pH 5.0 (4.5-7.5) 06/25/19 12:23 Ur Specific [place] 1.015 (1.000-1.030) 06/25/19 12:23 Urine Protein Negative (Negative) 06/25/19 12:23 Urine Glucose (UA) Negative (Negative) 06/25/19 12:23 Urine Ketones Negative (Negative) 06/25/19 12:23 Urine Nitrite Negative (Negative) 06/25/19 12:23 Ur Leukocyte Esterase Trace (Negative) H 06/25/19 12:23 Urine WBC (Auto) 5-10 /hpf (0-5) H 06/25/19 12:23 Urine RBC (Auto) 0-4 /hpf (0-4) 06/25/19 12:23 U Hyaline Cast (Auto) 1-5 /lpf (0-5) 06/25/19 12:23 U Epithel Cells (Auto) 10-20 /lpf (0-5) H 06/25/19 12:23 Urine Bacteria (Auto) Negative (Negative) 06/25/19 12:23 Blood Type A Positive 06/25/19 12:23 Antibody Screen NEGATIVE 06/25/19 12:23 Electrocardiogram Date: 06/12/19 SR at 84bpm. Old anterior infarct. Echocardiogram Date: 08/10/18 EF 55%. Normal LV diastolic function. Normal RV size and systolic function. Mild LAD. Elevated right atrial pressures. Stress Test Date: 08/06/18 Type: nuclear (Lexiscan) "EF 60%. A nontransmural infarction involving a medium-sized area of the basal and mid anterior wall cannot be completely ruled out, there is however normal wall motion and this reversible defect is probably secondary to breast attenuation" per cardio preop evaluation from 06/12/19 (multiple attempts to obtain official report unsuccessful.* Cardiac Catheterization Date: 10/06/18 Right heart cath: "RA pressure = 6, RV 36/9, PA 33/8, mean PA= 19, PCWP= 11, PA oxygen saturation 96%. Cardiac output saturation 96%. Cardiac output 6.5, cardiac index 2.8." per cardio preop evaluation from 06/12/19 (multiple attempts to obtain official report unsuccessful.* Other Testing Chest CTA: 07/16/18: old granulomatous disease. No findings suggest malignancy. Noncalcified 2cm nodule in the RML unchanged from 2009 CXR. Minor b/l basilar areas of geographic groundglass densities suggesting minor atelectasis or minimal hypersensitivity alveolitis.
[2019-06-25 13:33] LABS: Basophils # (auto) 0.02 K/uL (0-0.2); Basophils % (auto) 0.3 %; Eosinophils # (auto) 0.02 K/uL (0-0.5); Eosinophils % (auto) 0.3 %; Hematocrit (blood only) 37.6 % (37-47); Immature Granulocytes # (auto) 0.02 K/uL (0.00-0.02); Immature Granulocytes % (auto) 0.3 %; Lymphocytes # (auto) 1.66 K/uL (1.2-3.4); Mean Corpuscular Hgb Conc 31.9 g/dL (32-36); Mean Corpuscular Volume 87.6 fL (80-100); Mean Platelet Volume 9.8 fL (7.4-10.4); Monocytes # (auto) 0.39 K/uL (0.11-0.59); Monocytes % (auto) 6.8 %; Neutrophils # (auto) 3.61 K/uL (1.4-6.5); Neutrophils % (auto) 63.3 %; Platelet Count 305 K/uL (130-400); RDW Coefficient of Variation 13.8 % (11.5-14.5); Red Blood Count 4.29 M/uL (4.2-5.4); White Blood Count 5.72 K/uL (4.8-10.8)
[2019-06-25 13:45] LABS: Appearance Urine Clear (Clear); Bacteria Urine Automated Negative (Negative); Bilirubin Urine Negative (Negative); Blood Urine Negative (Negative); Color Urine Yellow; Glucose Urine UA Negative (Negative); Ketones Urine Negative (Negative); Leukocyte Esterase Urine Trace (Negative); Nitrite Urine Negative (Negative); Protein Urine Negative (Negative); RBC Urine Automated 0-4 /hpf (0-4); Specific Gravity Urine 1.015 (1.000-1.030); Urobilinogen Urine Negative (Negative)
[2019-06-25 13:49] LABS: Estimated Average Glucose 117 mg/dl; Hemoglobin A1C 5.7 % (4.5-5.6)
[2019-06-25 13:53] LABS: Partial Thromboplastin Ratio 0.9; Partial Thromboplastin Time 24.2 Seconds (21.0-31.0); Prothrombin Time 10.3 Seconds (9.0-12.0)
[2019-06-25 14:04] LABS: Albumin Level 3.7 gm/dl (3.4-5.0); BUN Creatinine Ratio 15.8 (10-20); Calcium 8.8 mg/dl (8.5-10.1); Creatinine Clr Calc Pharmacy 82.5 ml/min; Est GFR (African American) 76.1; Est GFR (Non-African American) 65.7; Potassium 3.3 mmol/L (3.5-5.1)
[2019-07-10] MEDS ORDERED: LR 500ML BOLUS, THEN 15ML/HR IV SCH (06:00)
[2019-07-10] MEDS ORDERED: TRANEXAMIC ACID 1,000 MG **IV Pre-op IV SCH (06:00)
[2019-07-10] MEDS ORDERED: CEFAZOLIN 3000MG 72.5 ML IV SCH (06:00)
[2019-07-10] MEDS ORDERED: CeleBREX 200 MG CAP PO SCH (06:00)
[2019-07-10] MEDS ORDERED: ACETAMINOPHEN 500 MG TAB PO SCH (06:00)
[2019-07-10] MEDS ORDERED: GABAPENTIN 300 MG CAP PO SCH (06:00)
[2019-07-10] MEDS ORDERED: ROPIVACAINE 0.5% HCL/PF 150 MG, BUPIVACAINE 0.5% MPF 30 ML, EPINEPHrine 30MG/30ML (OR U... INSTIL SCH (06:00)
[2019-07-10] MEDS ORDERED: ROPIVACAINE 0.5% 5 MG/ML 30 ML VIAL ONE (06:23)
[2019-07-10] MEDS ORDERED: BUPIVACAINE 0.5 % 5 MG/1 ML PF 10ML VIAL ONE (06:23)
[2019-07-10] MEDS ORDERED: EPINEPHrine INJ 1 MG/ML AMP ONE (06:23)
[2019-07-10] MEDS ORDERED: TRANEXAMIC ACID 1,000 MG **IV Intra-op IV SCH (06:30)
[2019-07-10] MEDS ORDERED: BACITRACIN INJ 50,000 UNIT VIAL ONE (06:55)
[2019-07-10] MEDS ORDERED: ORTHO JOINT ANESTHETIC ONE (06:55)
[2019-07-10] MEDS ORDERED: LIDOCAINE HCL 2% 2 ML VIAL/AMP(20MG/ML) INFIL ONE (07:07)
[2019-07-10] MEDS ORDERED: PROPOFOL IV EMULSION 10 MG/ML 20 ML VIAL IV ONE (07:07)
[2019-07-10] MEDS ORDERED: fentaNYL citrate 100 MCG/2 ML VIAL ONE (07:07)
[2019-07-10] MEDS ORDERED: MIDAZOLAM HCL 1 MG/ML 2ML VIAL ONE ×2 (07:07→08:40)
--- NOTE | 2019-07-10 07:10 | History & Physical Bridge Note ---
Date of Service July 10, 2019 History & Physical Bridge Note I have examined the patient, reviewed the History & Physical and in the interval since the performance of the History & Physical I have noted the following changes of clinical significance: no changes noted
[2019-07-10] MEDS ORDERED: ATROPINE SULFATE 0.1 MG/ML 10ML SYR IV PRN (08:39)
[2019-07-10] MEDS ORDERED: ePHEDrine sulfate 50 MG/ML SYR ONE (09:01)
[2019-07-10] MEDS ORDERED: PHENYLEPHRINE 100MCG/ML 5ML SYR ONE ×2 (09:01→09:49)
--- NOTE | 2019-07-10 09:02 | History & Physical Report ---
Date of Service July 10, 2019 date of surgery: 07/10/19 Assessment & Plan (1) Tricompartment osteoarthritis of right knee: Priti has failed conservative measures and would like to proceed with right TKA @ [facility]. she has recovered well after her left TKA. risks and benefits discussed in detail. Plan on discharge will be home with home health physical therapy. DVT prophalaxis with TEDs, SCDs and will also place on aspirin 81 mg p.o. b.i.d. for a month postop. Patient will have follow up appointment in our office two weeks post op for staple/suture removal and re-evaluation. Patient otherwise has no other questions or concerns. History of Present Illness Chief Complaint: right knee pain Primary Care Provider: Sharad Geiger DO Ms Hogue is a 69 year old female who complains of right knee pain and presents for pre op prior to a right total knee replacement. She presents with pain, crepitus, weakness and instability on the right side. She states that the symptoms have been chronic non-traumatic. The symptoms occur constantly with intermittent worsening. Currently the patient states that the symptoms are moderate-severe. The pain is described as aching, burning and sharp. She rates her current pain as 7/10. The symptoms are aggravated by repetitive activities and walking. Priti states that the symptoms are relieved by no specific activity. In addition to right knee pain the patient is also experiencing decreased mobility, pain after activity, pain while sitting, stiffness and weakness. Patient is ambulating with a cane. Patient is taking Ibuprofen and Tylenol for pain. Patient has had series of visco in both knees. Patient had left TKA done on 03/06/19 Allergies Allergy/AdvReac Type Severity Reaction Status Date / Time Awmodtj-Nke-Lwx Reductase Allergy Intermediate Rash Verified 07/10/19 06:25 Inhibitor dog dander Allergy Unknown sneezing, Verified 07/10/19 06:25 watery eyes grass pollen Allergy Unknown severe Verified 07/10/19 06:25 congestion rosuvastatin [From Crestor] Allergy Unknown rash, Verified 07/10/19 06:25 blisters mite-Dermatophagoides Allergy Congested Verified 07/10/19 06:25 farinae, juan pablo Home Medications Home Medications Medication Instructions Recorded Confirmed Type Calcium 600 + D(3) 1 cap PO QAM 02/12/19 07/10/19 History Dulera 2 puff INHALATION QAM 02/12/19 07/10/19 History Nucala 1 dose SUBCUT MONTHLY PRN 02/12/19 07/10/19 History Spiriva Respimat 2 puff INHALATION QDL 02/12/19 07/10/19 History azelastine 2 spray INTRANASAL QAM 02/12/19 07/10/19 History clonazepam 0.5 mg PO HS 02/12/19 07/10/19 History diphenhydramine HCl [Benadryl] 25 mg PO UD PRN 02/12/19 07/10/19 History duloxetine [Cymbalta] 60 mg PO QAM 02/12/19 07/10/19 History epinephrine [EpiPen] 0.3 mg IM Q3H PRN 02/12/19 07/10/19 History famotidine [Pepcid] 20 mg PO UD PRN 02/12/19 07/10/19 History furosemide 40 mg PO QAM 02/12/19 07/10/19 History montelukast 10 mg PO QPM 02/12/19 07/10/19 History albuterol sulfate [Ventolin HFA] 1 puff INHALATION Q6H PRN 06/19/19 07/10/19 History aspirin [Aspirin Low Dose] 81 mg PO QAM 06/19/19 07/10/19 History losartan 25 mg PO QAM 06/19/19 07/10/19 History melatonin 5 - 10 mg PO HS 06/19/19 07/10/19 History Past Med/Surg History Medical History Anxiety Chronic obstructive pulmonary disease stable Depression GERD (gastroesophageal reflux disease) controlled Hyperlipidemia Hypertension Acid reflux controlled Asthma stable Degenerative disc disease Hearing deficit left History of right breast cancer no chemo/XRT Morbid obesity Osteoarthritis Sleep apnea non-compliant with CPAP Surgical History History of ear surgery LEFT EAR - HAD PLASTIC EAR DRUM PLACED CHILD AND NOW HARD OF HEARING IN THAT EAR Hx of cardiac cath REMOTE HX= NO STENTS Hx of myringotomy History of arthroscopy of left knee History of bilateral cataract extraction History of breast biopsy RIGHT/MARKER History of colonoscopy History of hysterectomy History of left knee replacement 03/06/19: SAB x2 at L3-L4 + PNB at [facility] History of partial thyroidectomy History of urologic surgery BLADDER TACK Hx of appendectomy Family History Other Family history of heart disease Social History Preferred Language: Telugu Communication Ability: Effective Nut Threader Required: No Beliefs That Will Affect Care: None Current Living Situation: Alone Feels Safe at Home: Yes Smoking Status: Former smoker Tobacco Type: cigarettes ; Do You Dip or Chew Tobacco: No ; Smoking End Date: QUIT 10+ YEARS AGO ; Second Hand Exposure: No ; Hx Alcohol Use: No Hx Substance Use: No Review of Systems Review of Systems: All systems reviewed & are unremarkable except as noted in HPI & below Constitutional: no fever, no chills and no sweats Respiratory: no cough and no dyspnea Cardiovascular: no chest pain, no dyspnea and no orthopnea Gastrointestinal: no abdominal pain, no nausea and no vomiting Musculoskeletal: as per Subjective / HPI Physical Exam 2 Physical Exam: Ht: 5ft 5 in Wt: 127.6kg Constitutional: WD/WN, vitals as above no acute distress Respiratory: normal respiratory effort, lungs clear to auscultation no respiratory distress, no labored breathing and does not use accessory muscles Cardiovascular: RRR, no murmur, no edema Gastrointestinal (Abdomen): normal bowel sounds, soft, nontender, no hepatosplenomegaly Musculoskeletal: right Knee Physical Exam ambulates with a limp, there is no erythema, warmth, ecchymosis or atrophy noted, +1 effusion, greatest tenderness over the medial joint line and anterior knee joint. negative patellar apprehension , mild crepitation with motion, jose's negative, posterior drawer negative. positive mcmurrays medially, negative anterior drawer, knee stable with valgus/varus stress. no extensor lag. pain with active range of motion, AROM 0/3/110, Passive ROM 0/3/115. No pain with active/passive ROM of ankle. Lower Extremity Strength normal. Lower Ext remity Neuro-vascular is normal Results & Data Vital Signs (Past 12 Hours) Vital Signs Temp Pulse Resp BP Pulse Ox 07/10/19 06:36 36.7 C 69 18 136/68 97 Diagnostic Findings right knee xray from 7/5/19 showing advanced degenerative changes to the right knee, with narrowing of the medial compartment and patello-femoral joint with patellar spurring noted, findings showing joint space narrowing of the medial compartment and patello-femoral joint, osteophyte formation and subchondral sclerosis noted. overall varus alignment. no acute bony pathology noted.
--- NOTE | 2019-07-10 09:29 | Operative Report ---
Post Operative Report Pre & Post Diagnosis Operation Date: 07/10/19 08:20 Pre-Op Diagnosis: Unilateral Primary Osteoarhtritis, Right Knee Post-Op Diagnosis: Unilateral Primary Osteoarhtritis, Right Knee Procedure Operation Date: 07/10/19 08:20 Actual Procedures p Right Total Knee Arthroplasty(Right) utilizing Gan & NephNephros journey to non- block total knee arthroplasty size 5 femur size 4 tibia size 9 polyethylene size 29 oval patella- Elias Harris DO Surgeon Elias Harris DO Employment Evaluator/Case Manager Keon [employer] Estimated Blood Loss 5 Findings Consistent with Post-Op Diagnosis Patient presents with severe end-stage DJD right knee conservative management intraoperative findings are consistent that of subchondral sclerosis marginal osteophytes cystic changes with eburnated [id number] moderate to large effusion Specimens Bone cartilage Drains Medium bore Hemovac Complications none Disposition Accompanied Patient To Recovery: No Disposition: Recovery Room Indications Patient presents with severe DJD right knee after failed attempted conservative management including physical therapy and inflammatory relative rest activity modification corticosteroid injections Visco supplementation she presents for right total knee arthroplasty Description of Procedure After proper prepping and draping of the Right lower extremity anterior midline incision was made over the region of the extensor extensor mechanism after meticulous hemostasis was obtained and maintained in subcutaneous tissues a medial parapatellar incision was made The patella was subluxed lateralward the medial lateral gutter were cleaned from any hypertrophic synovitis and scar tissue of the distal femoral block was placed and the distal femoral osteotomy c ut was made subsequently the chamfers anterior and posterior osteotomy cuts were made utilizing the 4-in-1 block the tibia was subsequently subluxed anteriorward medial and ateral meniscal remnants were excised in their entirety remnants of the anterior and posterior cruciate ligaments were excised in their entirety excellent exposure of the proximal tibia was obtained the tibial osteotomy guide was placed on the proximal tibial osteotomy cut was made once again the knee was irrigated with copious amounts of sterile saline solution the patella was subsequently everted lateralward thickened scar tissue around the patella was removed the patella was subsequently cut utilizing a freehand technique and was drilled prepared for final preparation and placement of patella socially flexion-extension gaps were checked and the equal and symmetric trials were placed to the appropriate femoral and tibial trials with poly-spacer being placed for equal flexion and extension gaps and full range of motion including extension to 0 and flexion to 140 the trial components after having been taken to recovery range of motion was subsequently removed meticulous hemostasis was obtained and maintained subsequently a knee block injection of joint cocktail including ropivacaine 0.5% 150 mg. Bupivacaine 0.5% epinephrine 1-200,030 mL's toradol 30 mg dexamethasone 4 mg ketamine 10 mg clonidine 100 micrograms normal saline solution 30 mg was infiltrated into the soft tissues of the posterior knee medial lateral gutters and periosteal synovium special attention was paid to protect neurovascular structures at all times subsequently trial components having been removed the knee was irrigated with sterile saline solution. debris was removed the proximal tibia was subsequently prepared and was made ready for the placement of the tibial component tibial component was also cemented and tamped into position the femoral component was subsequently placed and cemented in the position the patellar component was subsequently cemented in position because hemostasis once again obtained and maintained wound having been thoroughly irrigated with debridement and debridement lavage was performed as well as a medial parapatellar incision closed with #1 Vicryl in interrupted fashion subcutaneous was closed with #2 Vicryl skin was closed with skin clips. PA-C was necessary for prepping and drapping as well as wound closure of deep fascia Sub cutaneous tissue and skin and was necessary for the case. A sterile compressive dressing was placed patient was taken to recovery in stable condition of report dictated by Steven I attest to the content of the Intraoperative Record and any orders documented therein. Any exceptions are noted below. I attest to the content of the Intraoperative Record and any orders documented therein. Any exceptions are noted below.
--- NOTE | 2019-07-10 10:41 | XRay Report ---
RIGHT KNEE 2 VIEWS History: Right total knee arthroplasty. Degenerative arthritis. Postop. FINDINGS: The patient is status post a right total knee arthroplasty. The hardware is intact. No frac ture or dislocation. Skin nick and surgical drains are in place. IMPRESSION: Right total knee arthroplasty. No evidence for hardware complication. Electronically signed by: Geovanny Hastings M.D. 07/10/2019 10:40 AM
[2019-07-10] MEDS: ePHEDrine sulfate 50 MG/ML AMP IV PRN ×2 (11:01→11:11)
--- NOTE | 2019-07-10 11:39 | Anesthesiology Progress Note ---
Date of Service July 10, 2019 Anesthesia Post Procedure Vital Signs Vital Signs: Temp Pulse Pulse Resp BP Pulse Ox 07/10/19 11:38 37.0 C 76 14 101/55 L 98 07/10/19 11:28 37.0 C 76 14 96/51 L 98 07/10/19 11:15 37.0 C 72 14 94/56 L 98 07/10/19 11:05 69 14 95/56 L 99 07/10/19 10:55 65 14 94/61 L 100 07/10/19 10:45 58 L 14 99/56 L 97 07/10/19 10:35 69 16 99/53 L 98 07/10/19 10:25 70 16 99/54 L 95 07/10/19 10:15 67 16 95/49 L 98 07/10/19 10:07 37.1 C 72 16 101/48 L 98 07/10/19 06:36 36.7 C 69 18 136/68 97 Transfer of Care Handoff Completed per policy Notes Mental Status: alert / awake / arousable Patient Amnestic to Procedure: Yes Nausea / Vomiting: adequately controlled Pain: adequately controlled Airway Patency, RR, SpO2: stable & adequate BP & HR: stable & adequate Hydration State: stable & adequate Neuraxial Anesthesia: was administered and sensory block is resolving Anesthetic Complications: no major complications apparent
[2019-07-10] MEDS ORDERED: ONDANSETRON INJ 2 MG/ML 2 ML VIAL IV PRN (12:03)
[2019-07-10] MEDS ORDERED: NALOXONE HCL 0.4 MG/1 ML VIAL/CARP IV PRN (12:03)
[2019-07-10] MEDS ORDERED: BISACODYL 10 MG SUPP PR PRN (12:03)
[2019-07-10] MEDS ORDERED: SODIUM CHLORIDE 0.9% 1000ML 1,000 ML IV SCH (12:03)
[2019-07-10] MEDS ORDERED: ALBUTEROL HFA 8 GM INHALER INH PRN (12:03)
[2019-07-10] MEDS ORDERED: MAGNESIUM HYDROXIDE SUSP 30 ML UDC PO PRN (12:03)
[2019-07-10] MEDS: ACETAMINOPHEN 500 MG TAB PO SCH ×2 (14:02→21:52)
[2019-07-10] MEDS: CEFAZOLIN 2000MG 2,000 MG/15 ML SYR IV SCH ×2 (14:02→22:02)
[2019-07-10] MEDS: AZELASTINE - ORDER AWAITING ACTION SCH ×2 (15:46→23:36)
[2019-07-10] MEDS: DULERA - ORDER AWAITING ACTION SCH ×2 (15:46→23:36)
[2019-07-10] MEDS: OXYCODONE HCL IR 5 MG TAB (IMMEDIATE RELEASE) PO PRN ×2 (15:52→23:40)
[2019-07-10] MEDS: FERROUS GLUCONATE 324 MG TAB PO SCH (16:02)
[2019-07-10] MEDS: DOCUSATE SODIUM 100 MG CAP PO SCH (20:10)
[2019-07-10] MEDS: MONTELUKAST SODIUM 10 MG TABLET PO SCH (20:10)
[2019-07-10] MEDS: ASPIRIN 81 MG ECTAB PO SCH (20:10)
[2019-07-10] MEDS: SENNA 8.6 MG TAB PO SCH (20:10)
[2019-07-10] MEDS: clonazePAM 0.5 MG TAB PO SCH (20:10)
[2019-07-11] MEDS: HYDROmorphone INJ 0.5 MG/0.5 ML SYR IV PRN ×2 (00:45→22:54)
[2019-07-11] MEDS: ACETAMINOPHEN 500 MG TAB PO SCH ×3 (06:05→21:26)
[2019-07-11 06:59] LABS: Hemoglobin 9.8 g/dL (12.0-16.0); Mean Corpuscular Hemoglobin 28.1 pg (25-34); Mean Corpuscular Hgb Conc 31.6 g/dL (32-36); Mean Corpuscular Volume 88.8 fL (80-100); Mean Platelet Volume 9.6 fL (7.4-10.4); Platelet Count 216 K/uL (130-400); RDW Coefficient of Variation 14.3 % (11.5-14.5); RDW Standard Deviation 46.5 fL (36.4-46.3); Red Blood Count 3.49 M/uL (4.2-5.4); White Blood Count 11.94 K/uL (4.8-10.8)
[2019-07-11 07:37] LABS: BUN Creatinine Ratio 20.2 (10-20); Calcium 8.3 mg/dl (8.5-10.1); Creatinine Clr Calc Pharmacy 78.8 ml/min; Est GFR (African American) 74.2; Potassium 4.2 mmol/L (3.5-5.1)
--- NOTE | 2019-07-11 07:57 | Orthopedic Progress Note ---
Date of Service July 11, 2019 Assessment & Plan (1) History of total right knee replacement: POD #1 s/p Right TKA pt/ot dvt proph with TONYA/SCD/ASA will consult CM for poss rehab vs SNF, lives alone will add Toradol x 24 hours for pain control Subjective POD #1 s/p Right TKA Review of Systems Constitutional: no fever, no chills and no sweats Respiratory: no cough and no dyspnea Cardiovascular: no chest pain and no dyspnea Gastrointestinal: no abdominal pain, no nausea and no vomiting Physical Exam Physical Exam: Vital Signs Temp 36.7 C 07/11/19 03:31 Pulse 75 07/11/19 03:31 Resp 20 07/11/19 03:31 BP 99/59 L 07/11/19 03:31 Pulse Ox 96 07/11/19 03:31 Intake & Output 07/10/07/11/19 07/11/19 18:59 06:59 18:59 Intake Total 2667.5 / 3477.5 810 / 3477.5 Output Total 505 / 1080 575 / 1080 Balance 2162.5 / 2397.5 235 / 2397.5 Weight 127.601 kg Intake: IV 992.5 / 992.5 Ancef 3000MG 7 2.5 ml @ 130 mls/ 72.5 / 72.5 hr IV PREOP SC H Rx#:[id number] Lr 1,000 ml @ 15 mls/hr IV . 700 / 700 Q24H SYED Rx#:[id number] Cyklokapron 1, 000 mg In Sodium 220 / 220 Chloride 100 m l @ 660 mls/hr IV 0630 SYED Rx#:[id number] IV Perioperative 1400 / 1400 Oral 275 / 1085 810 / 1085 Output: Urine 425 / 775 350 / 775 Estimated Blood Loss 5 / 5 Drain Output 75 / 300 225 / 300 Right Knee Hem ovac 75 / 300 225 / 300 Other: # Unmeasured Voi ds 1 Constitutional: WD/WN, vitals as above no acute distress Musculoskeletal: Right Leg: NVDI, calf SNT, negative betsy sign. DP palpable, able to wiggle toes/ankle movement without difficulty. dressing clean dry and intact. Results & Data Vital Signs (Past 12 Hours) Vital Signs Temp Pulse Resp BP Pulse Ox 07/11/19 03:31 36.7 C 75 20 99/59 L 96 07/10/19 23:34 36.6 C 83 17 112/73 93 07/10/19 20:18 18 96 Laboratory Results Laboratory Results WBC 11.94 K/uL (4.8-10.8) H 07/11/19 06:46 RBC 3.49 M/uL (4.2-5.4) L 07/11/19 06:46 Hgb 9.8 g/dL (12.0-16.0) L 07/11/19 06:46 Hct 31.0 % (37-47) L 07/11/19 06:46 MCV 88.8 fL (80-100) 07/11/19 06:46 MCH 28.1 pg (25-34) 07/11/19 06:46 MCHC 31.6 g/dL (32-36) L 07/11/19 06:46 RDW Std Deviation 46.5 fL (36.4-46.3) H 07/11/19 06:46 RDW Coeff of Jeanne 14.3 % (11.5-14.5) 07/11/19 06:46 Plt Count 216 K/uL (130-400) 07/11/19 06:46 MPV 9.6 fL (7.4-10.4) 07/11/19 06:46 Immature Gran % (Auto) 0.3 % 06/25/19 12:23 Neut % (Auto) 63.3 % 06/25/19 12:23 Lymph % (Auto) 29.0 % 06/25/19 12:23 [place] % (Auto) 6.8 % 06/25/19 12:23 Eos % (Auto) 0.3 % 06/25/19 12:23 Baso % (Auto) 0.3 % 06/25/19 12:23 Immature Gran # (Auto) 0.02 K/uL (0.00-0.02) 06/25/19 12:23 Neut # (Auto) 3.61 K/uL (1.4-6.5) 06/25/19 12:23 Lymph # (Auto) 1.66 K/uL (1.2-3.4) 06/25/19 12:23 Randolph # (Auto) 0.39 K/uL (0.11-0.59) 06/25/19 12:23 Eos # (Auto) 0.02 K/uL (0-0.5) 06/25/19 12:23 Baso # (Auto) 0.02 K/uL (0-0.2) 06/25/19 12:23 PT 10.3 Seconds (9.0-12.0) 06/25/19 12:23 INR 1.0 (0.9-1.1) 06/25/19 12:23 APTT 24.2 Seconds (21.0-31.0) 06/25/19 12:23 PTT Ratio 0.9 06/25/19 12:23 Sodium 142 mmol/L (136-145) 07/11/19 06:46 Potassium 4.2 mmol/L (3.5-5.1) 07/11/19 06:46 Chloride 109 mmol/L (98-107) H 07/11/19 06:46 Carbon Dioxide 28 mmol/L (21-32) 07/11/19 06:46 Anion Gap 4.0 (3-11) 07/11/19 06:46 BUN 19 mg/dl (7-18) H 07/11/19 06:46 Creatinine 0.92 mg/dl (0.6-1.2) 07/11/19 06:46 Est Cr Clr Drug Dosing 78.8 ml/min 07/11/19 06:46 Est GFR ( Amer) 74.2 07/11/19 06:46 Est GFR (Non-Af Amer) 64.0 07/11/19 06:46 BUN/Creatinine Ratio 20.2 (10-20) H 07/11/19 06:46 Glucose 117 mg/dl (70-99) H 07/11/19 06:46 Estimat Average Glucose 117 mg/dl 06/25/19 12:23 Hemoglobin A1c 5.7 % (4.5-5.6) H 06/25/19 12:23 Calcium 8.3 mg/dl (8.5-10.1) L 07/11/19 06:46 Albumin 3.7 gm/dl (3.4-5.0) 06/25/19 12:33 Urine Color Yellow 06/25/19 12:23 Urine Appearance Clear (Clear) 06/25/19 12:23 Urine pH 5.0 (4.5-7.5) 06/25/19 12:23 Ur Specific [place] 1.015 (1.000-1.030) 06/25/19 12:23 Urine Protein Negative (Negative) 06/25/19 12:23 Urine Glucose (UA) Negative (Negative) 06/25/19 12:23 Urine Ketones Negative (Negative) 06/25/19 12:23 Urine Blood Negative (Negative) 06/25/19 12:23 Urine Nitrite Negative (Negative) 06/25/19 12:23 Urine Bilirubin Negative (Negative) 06/25/19 12:23 Urine Urobilinogen Negative (Negative) 06/25/19 12:23 Ur Leukocyte Esterase Trace (Negative) H 06/25/19 12:23 Urine WBC (Auto) 5-10 /hpf (0-5) H 06/25/19 12:23 Urine RBC (Auto) 0-4 /hpf (0-4) 06/25/19 12:23 U Hyaline Cast (Auto) 1-5 /lpf (0-5) 06/25/19 12:23 U Epithel Cells (Auto) 10-20 /lpf (0-5) H 06/25/19 12:23 Urine Bacteria (Auto) Negative (Negative) 06/25/19 12:23 Blood Type A Positive 06/25/19 12:23 Antibody Screen NEGATIVE 06/25/19 12:23 Diagnostic Findings RIGHT KNEE 2 VIEWS History: Right total knee arthroplasty. Degenerative arthritis. Postop. FINDINGS: The patient is status post a right total knee arthroplasty. The hardware is intact. No fracture or dislocation. Skin nick and surgical drains are in place. IMPRESSION: Right total knee arthroplasty. No evidence for hardware complication.
[2019-07-11] MEDS: AZELASTINE - ORDER AWAITING ACTION SCH (08:44)
[2019-07-11] MEDS: DULERA - ORDER AWAITING ACTION SCH (08:45)
[2019-07-11] MEDS ORDERED: NON-FORMULARY MEDICATION (Mometasone-Formoterol [Dulera] 2 PUFFS) INH SCH (09:00)
[2019-07-11] MEDS ORDERED: NON-FORMULARY MEDICATION (Azelastine 2 SPRAYS) INTNAS SCH (09:00)
[2019-07-11] MEDS: KETOROLAC 30 MG/ML VIAL IV PRN ×2 (09:26→15:41)
[2019-07-11] MEDS: OXYCODONE HCL IR 5 MG TAB (IMMEDIATE RELEASE) PO PRN (09:26)
[2019-07-11] MEDS: DOCUSATE SODIUM 100 MG CAP PO SCH ×2 (09:27→20:28)
[2019-07-11] MEDS: MULTIVITAMIN TAB PO SCH (09:27)
[2019-07-11] MEDS: LOSARTAN POTASSIUM 50 MG TAB PO SCH (09:27)
[2019-07-11] MEDS: DULOXETINE HCL 60 MG CAP PO SCH (09:27)
[2019-07-11] MEDS: CALCIUM 600MG + VIT D 400 IU TAB PO SCH (09:28)
[2019-07-11] MEDS: FERROUS GLUCONATE 324 MG TAB PO SCH ×2 (09:28→16:03)
[2019-07-11] MEDS: ASPIRIN 81 MG ECTAB PO SCH ×2 (09:28→20:28)
--- NOTE | 2019-07-11 10:34 | Anesthesiology Progress Note ---
Date of Service July 11, 2019 Anesthesia Post Procedure Vital Signs Vital Signs: Temp Pulse Pulse Resp BP Pulse Ox 07/11/19 07:28 36.7 C 60 16 104/68 96 07/11/19 03:31 36.7 C 75 20 99/59 L 96 07/10/19 23:34 36.6 C 83 17 112/73 93 07/10/19 20:18 18 96 07/10/19 19:21 36.9 C 89 18 106/69 96 07/10/19 14:56 36.6 C 82 17 108/67 99 07/10/19 13:33 76 16 110/70 97 07/10/19 12:33 76 16 97/59 L 99 07/10/19 12:03 76 16 104/62 99 07/10/19 11:55 36.6 C 87 16 97/60 L 97 07/10/19 11:38 37.0 C 76 14 101/55 L 98 07/10/19 11:28 37.0 C 76 14 96/51 L 98 07/10/19 11:15 37.0 C 72 14 94/56 L 98 07/10/19 11:05 69 14 95/56 L 99 07/10/19 10:55 65 14 94/61 L 100 07/10/19 10:45 58 L 14 99/56 L 97 07/10/19 10:35 69 16 99/53 L 98 Notes Mental Status: alert / awake / arousable and participated in evaluation Patient Amnestic to Procedure: Yes Nausea / Vomiting: adequately controlled Pain: adequately controlled Airway Patency, RR, SpO2: stable & adequate BP & HR: stable & adequate Hydration State: stable & adequate Neuraxial Anesthesia: sensory block resolved Anesthetic Complications: no major complications apparent and Pt Satisfied with anesthetic care
[2019-07-11] MEDS: TIOTROPIUM BROMIDE 5 PUFF/90 MCG INH INH SCH (12:36)
[2019-07-11] MEDS: SENNA 8.6 MG TAB PO SCH (20:28)
[2019-07-11] MEDS: MONTELUKAST SODIUM 10 MG TABLET PO SCH (20:28)
[2019-07-11] MEDS: clonazePAM 0.5 MG TAB PO SCH (20:28)
[2019-07-11] MEDS ORDERED: FUROSEMIDE 40 MG TAB PO ONE (21:06)
[2019-07-11 23:38] VITALS: O2SAT 94
[2019-07-12] MEDS: OXYCODONE HCL IR 5 MG TAB (IMMEDIATE RELEASE) PO PRN ×2 (01:15→13:01)
[2019-07-12] MEDS: ACETAMINOPHEN 500 MG TAB PO SCH ×2 (05:53→14:33)
--- NOTE | 2019-07-12 07:20 | Orthopedic Progress Note ---
Date of Service July 12, 2019 Assessment & Plan (1) History of total right knee replacement: POD #2 s/p Right TKA pt/ot dvt proph with TONYA/SCD/ASA will consult CM for poss rehab vs SNF, awaiting approval pain improved with Toradol Subjective POD #2 s/p Right TKA Review of Systems Constitutional: no fever, no chills and no sweats Respiratory: no cough and no dyspnea Cardiovascular: no chest pain and no dyspnea Gastrointestinal: no abdominal pain, no nausea and no vomiting Physical Exam Physical Exam: Vital Signs Temp 36.7 C 07/11/19 23:37 Pulse 71 07/11/19 23:37 Resp 17 07/11/19 23:37 BP 108/72 07/11/19 23:37 Pulse Ox 94 07/11/19 23:37 Intake & Output 07/11/19 07/12/19 07/12/19 18:59 06:59 18:59 Intake Total 400 / 700 300 / 700 Output Total 125 / 300 175 / 300 Balance 275 / 400 125 / 400 Intake: Oral 400 / 700 300 / 700 Output: Drain Output 125 / 300 175 / 300 Right Knee Hem ovac 125 / 300 175 / 300 Other: # Unmeasured Voi ds 1 1 Constitutional: WD/WN, vitals as above no acute distress Musculoskeletal: Right Leg: NVDI, calf SNT, negative betsy sign. DP palpable, able to wiggle toes/ankle movement without difficulty. Prevena clean dry and intact. Results & Data Vital Signs (Past 12 Hours) Vital Signs Temp Pulse Resp BP Pulse Ox 07/11/19 23:37 36.7 C 71 17 108/72 94
[2019-07-12 08:13] VITALS: BP 113/73; PULSE 76; TEMP 98.2
[2019-07-12] MEDS ORDERED: AZELASTINE SCH (09:00)
[2019-07-12] MEDS ORDERED: MOMETASONE/FORMOTEROL INH SCH (09:00)
[2019-07-12] MEDS ORDERED: CeleBREX 200 MG CAP PO SCH (09:00)
[2019-07-12] MEDS ORDERED: FUROSEMIDE 40 MG TAB PO SCH (09:00)
[2019-07-12] MEDS: FERROUS GLUCONATE 324 MG TAB PO SCH (09:49)
[2019-07-12] MEDS: ASPIRIN 81 MG ECTAB PO SCH (09:49)
[2019-07-12] MEDS: CALCIUM 600MG + VIT D 400 IU TAB PO SCH (09:49)
[2019-07-12] MEDS: DULOXETINE HCL 60 MG CAP PO SCH (09:49)
[2019-07-12] MEDS: LOSARTAN POTASSIUM 50 MG TAB PO SCH (09:50)
[2019-07-12] MEDS: MULTIVITAMIN TAB PO SCH (09:50)
[2019-07-12] MEDS: DOCUSATE SODIUM 100 MG CAP PO SCH (09:50)
[2019-07-12] MEDS: TIOTROPIUM BROMIDE 5 PUFF/90 MCG INH INH SCH (12:58)
--- NOTE | 2019-07-19 13:57 | Discharge Summary ---
DISCHARGE DIAGNOSIS: Degenerative joint disease, right knee. SECONDARY DIAGNOSES: Anxiety, chronic obstructive pulmonary disease, depression, gastroesophageal reflux disease, hyperlipidemia, hypertension, asthma, degenerative disc disease, history of right breast carcinoma, morbid obesity, sleep apnea. CONSULTATIONS: None. COMPLICATIONS: None. PROCEDURES: Right total knee arthroplasty performed by Dr. Harris on 07/10/2019. BRIEF HISTORY: As dictated in the history of present illness. HOSPITAL SUMMARY: The patient was admitted on the above-noted date and had the above-noted surgery performed, which she tolerated well. On the first postoperative day, patient was remaining stable and had no complaints. Pain was controlled. Vital signs were stable and she was afebrile. Hemoglobin was 9.8 and neurovascular was intact. Calves were soft and nontender. Toes were mobile. Dressings were clean, dry and intact. The patient was started on physical therapy protocol and continued on DVT prophylaxis and pain management. By her second postoperative day, she continued to remain without any complaints. Pain was controlled. Vital signs were stable and she was afebrile. Prevena wound VAC was clean, dry, and intact and functioning well. Toes were mobile, neurovascularly intact. Calves were soft, nontender. It was felt the patient would benefit from a rehab stay post-discharge for which [facility] facility was chosen. The patient was otherwise remaining stable and slowly progressing with her physical therapy and it was felt that they could be discharged to [facility] on 07/12/2019. For further review, please see chart. LABORATORY AND X-RAY DATA: As per chart. DISCHARGE INSTRUCTIONS: The patient will be discharged to [facility] on 07/12/2019. DIET: Regular. ACTIVITY: Weightbearing as tolerated on right lower extremity. Follow TK instruction sheets and special care instructions as noted. Follow up with Dr. Harris in 2 weeks. The patient to call for appointment if one has not been made for you. DISCHARGE MEDICATIONS: Acetaminophen 1000 mg p.o. q. 8 hours, aspirin 81 mg p.o. b.i.d., cefadroxil 500 mg p.o. b.i.d., Celebrex 200 mg p.o. b.i.d., Colace 100 mg p.o. b.i.d., oxycodone 5-10 mg p.o. q. 6 hours p.r.n. Resume home meds as listed and stop taking previous aspirin dosage and stop taking melatonin.
== END 2019-07-12 16:30 | DRG 470 ==
LOC: ASU 05:50 → 3E 10:17
DX: I10 Essential (primary) hypertension; J44.9 Chronic obstructive pulmonary disease, unspecified; Z88.8 Allergy status to other drugs, medicaments and biological substances; Z87.891 Personal history of nicotine dependence; M17.11 Unilateral primary osteoarthritis, right knee; Z79.899 Other long term (current) drug therapy; F32.9 Major depressive disorder, single episode, unspecified; E66.01 Morbid (severe) obesity due to excess calories; Z96.652 Presence of left artificial knee joint; Z82.49 Family history of ischemic heart disease and other diseases of the circulatory system; E78.5 Hyperlipidemia, unspecified; F41.9 Anxiety disorder, unspecified